=== PATIENT | female | born 1985 | race Caucasian/White ===

== ENCOUNTER 2018-04-20 21:08 | Emergency (ER) | payer MEDICAID, SELFPAY ==
[2018-04-20 21:10] VITALS: BP 124/77; PULSE 85; RESP 16; TEMP 36.9; O2SAT 98; BMI 26.6
[2018-04-20 21:28] LABS: Bacteria 0 SEEN /hpf (None Seen); Color, Urine Straw (Yellow); Glucose, Dipstick Normal (Normal); Ketone-Dipstick Negative (Negative); Leukocyte Esterase-Dipstick Negative /ul (Negative); Mucous, Urine 0 SEEN /hpf (<or=2+); Nitrite-Dipstick Negative (Negative); Occult Blood-Urine 25 /ul (Negative); Protein-Dipstick Negative (Negative); Urine Bilirubin Dipstick Negative (Negative); Urine Clarity Clear (Clear); Urine Urobilinogen Normal (Normal); White Blood Cells 0 SEEN /hpf (0-5)
[2018-04-20 21:35] LABS: Red Blood Cells-Urine 0-5 SEEN /hpf (0-5); Squamous Epithelial Cells - UA 0-5 SEEN /hpf (5-10)
--- NOTE | 2018-04-20 22:01 | ED.DCSUM_ITS ---
- ER Visit Summary Date of Service: 04/20/18 Chief Complaint: Left flank discomfort History of Present Illness: The patient is a 32 F past medical history of anxiety and depression. No history of kidney stones. States she has had some mild urinary frequency for the last day or so. Mild nausea. No vomiting. No diarrhea. Her last menstrual period was less than 4 weeks ago. Ab0. Denies any vaginal bleeding or discharge. No fever. Denies any trauma. Physical Examination: Well-appearing young female. Vital signs stable and afebrile. No distress. H EENT exam unremarkable. Neck nontender. Lungs clear to auscultation bilaterally. Heart regular rhythm no murmur. Abdomen soft nontender. She is moving all 4 extremities. They are neurovascularly intact. Neurologically she is awake alert with no focal motor deficits. Back no significant tenderness. No signs of trauma. Test Results: UA was performed is completely normal. No nitrates no white or red cells on the microscopic and no bacteria. Emergency Department Course and Treatment: Repeat exam at 2158 patient is doing well. Treatment Plan: She is comfortable being discharged home. Tylenol and Motrin for pain. If pain worsens she can return to have a CAT scan at this time I think is very unlikely this is secondary to a kidney stone. Disposition: Discharge Impression: Flank pain uncertain etiology This note was generated with [employer] dictation software. It may contain incorrect words, spelling, and punctuation that were not noted in review of the chart prior to signing ED Disposition - Plan for ED Patient: Chief Complaint: Complaint Referrals: Care Physician,No Primary [Primary Care Provider] -
--- NOTE | 2018-04-20 22:01 | ED.DEP ---
ED Disposition - Plan for ED Patient: Disposition: Home or Assisted Living Chief Complaint: Complaint Instructions: ED Flank Pain Uncertain Cause Referrals: Ben Mei MD [STAFF PHYSICIAN] - 3-5 Days if not improving Additional Instructions: Tylenol and Motrin for pain. Follow-up with a primary care physician if not improving.
[2018-04-20 22:11] VITALS: BP 101/69; PULSE 72; RESP 18; O2SAT 98
== END 2018-04-20 22:12 | disposition home or self-care (01) ==
PROVIDERS: Emergency Provider Emergency Medicine
DX: R10.9 Unspecified abdominal pain (principal); R35.0 Frequency of micturition; R39.15 Urgency of urination; R11.0 Nausea; F32.9 Major depressive disorder, single episode, unspecified; F41.9 Anxiety disorder, unspecified; Z72.0 Tobacco use; Z79.899 Other long term (current) drug therapy
CPT/HCPCS: 81001; 99282

== ENCOUNTER 2018-05-08 21:51 | Emergency (ER) | payer MEDICAID, SELFPAY ==
[2018-05-08 21:52] VITALS: BP 147/76; PULSE 88; RESP 14; TEMP 36.8; O2SAT 97; BMI 23.5
--- NOTE | 2018-05-08 22:16 | ED.VISSUMM ---
- ER Visit Summary Date of Service: 05/08/18 Chief Complaint: Dental pain History of Present Illness: The patient is a 32 F who states that yesterday she removed her partials and when she did so tooth on the lower left side broke apart. She notes sensitivity to cold and heat. She has an appointment May 15 in [facility] for dentistry. She states that she is tried some Orajel ibuprofen and Tylenol can seemed to help with the pain. She denies any significant medical problems. Physical Examination: Afebrile vital signs are stable Gen: Well-nourished well-developed Head: Normocephalic atraumatic Eyes: Perrl EOMI ENT: TMs clear no rhinorrhea moist mucous membranes left lower premolar appears to have a large piece of the enamel missing with yellow exposed part of the tooth/Dentin visible on the outside. Neck: Supple no lymphadenopathy no JVD nontender CVS: Regular rate rhythm no murmurs normal S1-S2 Respiratory: No distress clear to auscultation bilaterally chest nontender Abdomen: Soft nontender nondistended normal bowel sounds no masses Back: Nontender Extremity: Nontender no edema Skin: Normal color no rash Neuro: alert orientated ?3 CN II-XII intact normal strength sensation reflexes gait cerebellar Psych: Normal affect normal mood Emergency Department Course and Treatment: It was applied. Patient will be started on clindamycin due to penicillin allergy and a few [place]. I advised her to follow-up with dentistry as soon as possible Impression: 1. Eliseo 2 fracture secondary to dental caries This note was generated with [employer] dictation software. It may contain incorrect words, spelling, and punctuation that were not noted in review of the chart prior to signing ED Disposition - Plan for ED Patient: Disposition: Home or Assisted Living Chief Complaint: Dental Instructions: ED Fx Tooth Prescriptions: Hydrocodone Bitart/Apap 5-325 [[place] 5MG-325MG] 1 tab PO Q6H PRN PRN 3 Days #12 tab PRN Reason: Pain Clindamycin [Cleocin] 300 mg PO 4X/DAY #80 cap Additional Instructions: See your dentist as soon as possible
--- NOTE | 2018-05-08 22:20 | ED.DCSUM_ITS ---
- ER Visit Summary Date of Service: 05/08/18 Chief Complaint: Dental pain History of Present Illness: The patient is a 32 F who states that yesterday she removed her partials and when she did so tooth on the lower left side broke apart. She notes sensitivity to cold and heat. She has an appointment May 15 in [facility] for dentistry. She states that she is tried some Orajel ibuprofen and Tylenol can seemed to help with the pain. She denies any significant medical problems. Physical Examination: Afebrile vital signs are stable Gen: Well-nourished well-developed Head: Normocephalic atraumatic Eyes: Perrl EOMI ENT: TMs clear no rhinorrhea moist mucous membranes left lower premolar appears to have a large piece of the enamel missing with yellow exposed part of the tooth/Dentin visible on the outside. Neck: Supple no lymphadenopathy no JVD nontender CVS: Regular rate rhythm no murmurs normal S1-S2 Respiratory: No distress clear to auscultation bilaterally chest nontender Abdomen: Soft nontender nondistended normal bowel sounds no masses Back: Nontender Extremity: Nontender no edema Skin: Normal color no rash Neuro: alert orientated ?3 CN II-XII intact normal strength sensation reflexes gait cerebellar Psych: Normal affect normal mood Emergency Department Course and Treatment: It was applied. Patient will be started on clindamycin due to penicillin allergy and a few [place]. I advised her to follow-up with dentistry as soon as possible Impression: 1. Eliseo 2 fracture secondary to dental caries This note was generated with [employer] dictation software. It may contain incorrect words, spelling, and punctuation that were not noted in review of the chart prior to signing ED Disposition - Plan for ED Patient: Disposition: Home or Assisted Living Chief Complaint: Dental Instructions: ED Fx Tooth Prescriptions: Hydrocodone Bitart/Apap 5-325 [[place] 5MG-325MG] 1 tab PO Q6H PRN PRN 3 Days #12 tab PRN Reason: Pain Clindamycin [Cleocin] 300 mg PO 4X/DAY #80 cap Additional Instructions: See your dentist as soon as possible
[2018-05-08] MEDS: HYDROcodone Bitartrate/Apap 5/325 Tablet PO (22:26)
[2018-05-08] MEDS: Clindamycin HCl 150 MG Capsule 300 MG PO (22:27)
[2018-05-08 22:40] VITALS: BP 134/68; PULSE 80; RESP 18; O2SAT 99
== END 2018-05-08 22:41 | disposition home or self-care (01) ==
LOC: ED 22:25
PROVIDERS: Emergency Provider Emergency Medicine
DX: K02.9 Dental caries, unspecified (principal); S02.5XXA Fracture of tooth (traumatic), initial encounter for closed fracture; X58.XXXA Exposure to other specified factors, initial encounter; Y93.9 Activity, unspecified; Y92.9 Unspecified place or not applicable; Y99.9 Unspecified external cause status; F41.9 Anxiety disorder, unspecified; G47.00 Insomnia, unspecified; Z72.0 Tobacco use; Z79.899 Other long term (current) drug therapy; Z88.0 Allergy status to penicillin
CPT/HCPCS: 99283

== ENCOUNTER 2018-10-27 20:09 | Emergency (ER) | payer MEDICAID, SELFPAY ==
[2018-10-27 20:12] VITALS: BP 143/73; PULSE 99; RESP 18; TEMP 36.7; O2SAT 99; BMI 25.0
--- NOTE | 2018-10-27 20:24 | RAD_ITS ---
STUDY: X-RAY CHEST REASON FOR EXAM: Female, 33 years old. Upper respiratory infection. TECHNIQUE: Single AP portable view of the chest. COMPARISON: None. FINDINGS: Cardiac silhouette unremarkable. Pulmonary vascularity unremarkable. Aorta unremarkable. No focal patchy airspace opacities. No pleural effusions. Upper abdomen unremarkable. Osseous structures intact. No pneumothorax. RAD/Chest 1 View IMPRESSION: No acute cardiopulmonary findings Electronically Signed: Parish Tineo DO at 20:45 EDT Tel , Service support ,
--- NOTE | 2018-10-27 20:25 | ED.VISSUMM ---
- ER Visit Summary Date of Service: 10/27/18 Chief Complaint: Cough History of Present Illness: The patient is a 33 F presenting with cough, runny nose. She states this started 4 days ago. She complains of sore throat, bilateral ear pain, productive cough. She denies fever. Denies difficulty swallowing. She has been taking Mucinex at home. Physical Examination: Vitals are stable. Patient is afebrile. Alert no acute distress. HEENT exam mild pharyngeal erythema with no exudate. Uvula midline. TMs normal bilaterally. Neck is supple. No meningismus Lungs are clear and equal bilaterally. Heart is regular rate and rhythm. Abdomen is soft nontender nondistended. Extremities are unremarkable. Skin is warm and dry. No rash No focal neurologic deficit. Remainder of exam is unremarkable. Emergency Department Course and Treatment: Chest x-ray shows no acute process. Rapid strep is negative. Patient is given a prescription for Tessalon Perles. Advised to follow-up with Dr. Aragon credit administration manager for no doc. Advised return to ED for worsening complaints. Disposition: Discharge home Impression: URI This note was generated with [employer] dictation software. It may contain incorrect words, spelling, and punctuation that were not noted in review of the chart prior to signing ED Disposition - Plan for ED Patient: Instructions: ED Upper Resp Infec No Abx Tx Prescriptions: Benzonatate [Tessalon Perle] 200 mg PO TID PRN PRN #20 capsule PRN Reason: Cough Referrals: Nestor Aragon MD [STAFF PHYSICIAN] -
--- NOTE | 2018-10-27 21:03 | ED.DEP ---
ED Disposition - Plan for ED Patient: Instructions: ED Upper Resp Infec No Abx Tx Prescriptions: Benzonatate [Tessalon Perle] 200 mg PO TID PRN PRN #20 capsule PRN Reason: Cough Referrals: Nestor Aragon MD [STAFF PHYSICIAN] -
[2018-10-27 21:26] VITALS: PULSE 91; RESP 18; O2SAT 98
== END 2018-10-27 21:39 | disposition home or self-care (01) ==
PROVIDERS: Emergency Provider Emergency Medicine
DX: J06.9 Acute upper respiratory infection, unspecified (principal); H92.03 Otalgia, bilateral; Z72.0 Tobacco use; Z79.899 Other long term (current) drug therapy
CPT/HCPCS: 71045; 87880; 99283

== ENCOUNTER 2019-04-20 18:17 | Emergency (ER) | payer MEDICAID, SELFPAY ==
[2019-04-20 18:18] VITALS: BP 133/84; PULSE 108; RESP 16; TEMP 35.9; BMI 30.9
--- NOTE | 2019-04-20 18:26 | RAD_ITS ---
STUDY: X-RAY CHEST REASON FOR EXAM: Female, 33 years old. Fever and cough TECHNIQUE: PA and lateral views of the chest. COMPARISON: 10/27/2018 FINDINGS: The lungs are clear and expanded. There is no demonstrated pleural abnormality. Normal size heart. Normal mediastinum and violet. Normal visualized pulmonary arteries. Normal visualized aortic arch and descending thoracic aorta. Normal visualized thoracic spine. Normal visualized ribs, clavicles, and shoulders. There is no demonstrated abnormality of the visualized soft tissue structures of the upper abdomen. RAD/Chest PA and Lateral IMPRESSION: Normal x-ray examination of the chest. Electronically Signed: Dean Morgan MD at 18:42 EDT , Service support ,
--- NOTE | 2019-04-20 18:39 | ED.VISSUMM ---
- ER Visit Summary Date of Service: 04/20/19 Chief Complaint: URI History of Present Illness: The patient is a 33 F presenting with URI symptoms. Patient states this has been ongoing since April 09. She was seen at urgent care. She was told she likely had a viral illness. She has been taking DayQuil and NyQuil at home. She complains of rhinorrhea, sore throat, cough. Denies chest pain or shortness of breath. Denies fever. Denies other complaints. Physical Examination: Vitals are stable. Patient is afebrile. Alert no acute distress. HEENT exam is unremarkable. Pharynx is normal. Uvula is midline. Neck is supple. No meningismus Lungs are clear and equal bilaterally. Heart is regular rate and rhythm. Abdomen is soft nontender nondistended. No guarding or rebound Extremities are unremarkable. Skin is warm and dry. No rash No focal neurologic deficit. Remainder of exam is unremarkable. Emergency Department Course and Treatment: Chest x-ray shows normal x-ray examination of the chest. She is given perception for Fabiana Simon. Advised to follow-up with Dr. Mckenna on-call for no doctor. Advised return to ED for worsening complaints. Disposition: Discharge home Impression: URI This note was generated with [employer] dictation software. It may contain incorrect words, spelling, and punctuation that were not noted in review of the chart prior to signing ED Disposition - Plan for ED Patient: Instructions: VIRAL SYNDROME (Adult) Prescriptions: Benzonatate [Tessalon Perle] 200 mg PO TID PRN PRN #20 cap PRN Reason: Cough Prescription Printed Referrals: Don Mckenna DO [NON CLINICAL AFFILIATE] -
--- NOTE | 2019-04-20 19:03 | ED.DEP ---
ED Disposition - Plan for ED Patient: Instructions: VIRAL SYNDROME (Adult) Prescriptions: Benzonatate [Tessalon Perle] 200 mg PO TID PRN PRN #20 capsule PRN Reason: Cough Referrals: Don Mckenna DO [NON CLINICAL AFFILIATE] -
[2019-04-20 19:06] VITALS: BP 128/67; PULSE 98; RESP 18; O2SAT 97
== END 2019-04-20 19:39 | disposition home or self-care (01) ==
LOC: ED 18:42
PROVIDERS: Emergency Provider Emergency Medicine
DX: J06.9 Acute upper respiratory infection, unspecified (principal); F41.9 Anxiety disorder, unspecified; Z72.0 Tobacco use
CPT/HCPCS: 71046; 99282

== ENCOUNTER 2019-12-19 22:55 | Emergency (ER) | payer MEDICAID, SELFPAY ==
[2019-12-19 22:56] VITALS: BP 139/101; PULSE 97; RESP 18; TEMP 36.8; O2SAT 95; BMI 28.1
--- NOTE | 2019-12-19 23:26 | ED.DCSUM_ITS ---
History of Present Illness Chief Complaint: Female C/O Informant: Patient Narrative: Stated she has had yellow vaginal discharge for the last couple weeks. She denies any pain. No history of sexual transmitted infection except for herpes. She is not having a flareup of this. She stated has mild foul smell. She is never had gonorrhea chlamydia bacterial vaginosis or trichomonas. No home treatment. Not having pain. Denies . Severity is mild. Past Medical History - Allergies and Home Meds Allergies/Adverse Reactions: Allergies acetaminophen [From Darvocet-N] Allergy (Verified 12/19/19 22:58) Hives Penicillins Allergy (Verified 12/19/19 22:58) Hives propoxyphene napsylate [From Darvocet-N] Allergy (Verified 12/19/19 22:58) Hives amoxicillin Adverse Reaction (Verified 12/19/19 22:58) Hives Primary Care Physician: Care Physician,No Primary [Primary Care Provider] - Prior records reviewed: Yes Past Medical History: None Surgical History: noncontributory Lives: With Family Smoking Status: Current every day smoker Alcohol: None Drugs: None Review of Systems General: Denies: Chills, Fever, Sweats Eyes: Denies: Visual changes - bilaterally, Diplopia ENT: Denies: Rhinorrhea, Sore throat Cardiovascular: Denies: Chest pain, Palpitations Respiratory: Denies: Dyspnea, Cough, Dyspnea on exertion Gastrointestinal: Denies: Abdominal pain, Nausea, Vomiting, Diarrhea, Melena, Hematochezia Genitourinary: Denies: Dysuria, Hematuria, Frequency Musculoskeletal: Denies: Back pain, Extremity Pain Skin: Denies: Rash, Wounds Neurological: Denies: Headache, Weakness, Numbness Physical Exam Vital Signs/Narrative: Vital Signs Temp Pulse Resp BP Pulse Ox 12/19/19 22:56 98.3 F 97 18 139/101 H 95 General: Well nourished, Well developed, No Acute Distress Head: Normocephalic, Atraumatic Eyes: Perrl, EOMI ENT: Moist mucous membranes, No rhinorrhea Neck: Supple, Nontender Cardiovascular: Regular rate, Regular rhythm, No murmurs Respiratory: No distress, CTA bilaterally, Chest nontender Abdomen: Soft, Nontender, Nondistended, Normal bowel sounds Back: Nontender, Normal Inspection Extremities: Nontender, No edema Skin: Normal color, No rash Neurological: Alert, Oriented x3, Cranial nerves II-XII grossly intact, Normal Strength, Normal Sensation Psychological: Normal affect, Normal Mood Diagnostic/Tx/Re-eval - Medical Decision Making Refusing pelvic exam. Will send gonorrhea and Chlamydia testing via urine. We will treat her for gonorrhea and chlamydia with ceftriaxone intramuscular and oral azithromycin. We will treat her for bacterial vaginosis and trichomonas with Flagyl as well. She will follow-up as an outpatient. ED Disposition - Plan for ED Patient: Disposition: Home or Assisted Living Diagnosis: Vaginal discharge Instructions: Vaginal Infection: Bacterial Vaginosis Prescriptions: metroNIDAZOLE [Flagyl] 500 mg PO BID #14 tab Transmission Status: Pending to [id number] Referrals: Don Mckenna DO [NON CLINICAL AFFILIATE] -
[2019-12-19] MEDS: metroNIDAZOLE 500 MG Tablet PO (23:40)
[2019-12-19] MEDS: Azithromycin 250 MG Tablet 1000 MG PO (23:40)
[2019-12-19] MEDS: Ceftriaxone 500 MG Vial 250 MG IM (23:53)
[2019-12-20 00:10] VITALS: BP 132/64; PULSE 84; RESP 18; O2SAT 96
[2019-12-20 01:45] LABS: Chlamydia Trachomatis by PCR Negative (Negative); Neisserai gonorrhoeae by PCR Negative (Negative); Probe Check PASS; Sample Adequacy Control PASS; Specimen Processing Control PASS
--- OUTSIDE RECORDS SUMMARY | 2020-04-26 12:12 | XMS RPT_ITS | CCD ---
:1985 External Reference #:[id number] Demographics Address [address] [place] [address] Preferred Language Unknown Marital Status Unknown Orthodoxy Affiliation Unknown Race White Ethnic Group Unknown Author Organization [facility] Care Team Providers Name Role Phone Unavailable Unavailable Unavailable Results Result Name Value Range Unit Interpretation Flag Date Location progress on 2019-11 PROGRESS HNO ID: [id number] Normal 11-20-2019 [facility] Author: Prem (Cylinder Inspector) Marie Diaz ([id number]) Service: ? Author Type: Nurse Practitioner Type: Progress Notes Filed: 11/20/2019 3:53 PM Note Text: Subjective HPI Nontoxic-appearing female presents urgent care with chief co mplaint possible dental infection. Duration of symptoms 3 days. Asso ciated symptoms left lower dental pain and gum redness. Patient sta selma history of dental infections in the past. Patient states use of leav e for symptom management with adequate success. Current pain 6 out of 10. Patient denies any trauma. Patient denies any fevers, trismus, diffi culty swallowing, cough, pleuritic pain, chest pain, shortness of breath, abdominal pain or change in bowel or bladder habit. Patient denies chance . She states use of clindamycin for dental infectio ns in past with good success. BP 120/84 Pulse 84 Temp 36.2 ?C (97.1 ?F) (Left Tympanic ) Resp 16 Wt 81.6 kg (180 lb) LMP 06/29/2019 BMI 28.62 kg/m? .Patient presents with: Mouth/Lip Problem: gum swollen on LEFT side/bottom of mouth x 3 days increasing in pain/swelling PAST MEDICAL HISTORY Diagnosis Date - Anxiety disorder in conditions classified elsewhere - Plantar fascial fibromatosis PAST SURGICAL HISTORY Procedure Laterality Date - NONE ALLERGIES Amoxil [Amoxicillin]; Darvocet A500 [Propoxyphene N-Acetaminophen]; Naproxen; Penicillins MEDICATIONS etonogestrel (NEXPLANON) subdermal implant 68 mg 1 Each by S UBDERMAL route as directed. ZOLPIDEM TARTRATE (AMBIEN ORAL) Take by mouth. ALPRAZolam (XANAX) 0.5 mg ORAL tablet Take one(1) tablet fou r (4) times daily. FAMILY HISTORY Problem Relation Age of Onset - Diabetes Mother - Emphysema Mother - Alcohol/Drug Mother - Hypertension Mother - other (UNKNOWN) Father - Stroke Maternal Grandmother - Hypertension Maternal Grandmother - Psychiatry Maternal Grandfather SCHIZOPHRENIA - Psychiatry Maternal Aunt BIPOLAR - Hypertension Maternal Aunt Social History Tobacco Use - Smoking status: Current Every Day Smoker Packs/day: 1.00 Years: 7.00 Pack years: 7.00 Types: Cigarettes - Smokeless tobacco: Never Used Substance Use Topics - Alcohol use: No - Drug use: No Review of Systems Constitutional: Negative for chills, fever and malaise/fatig ue. HENT: Negative for congestion, ear discharge, ear pain, sinu s pain and sore throat. Eyes: Negative for blurred vision and double vision. Respiratory: Negative for cough, sputum production, shortnes s of breath and wheezing. Cardiovascular: Negative for chest pain. Gastrointestinal: Negative for abdominal pain, nausea and vo miting. Musculoskeletal: Negative for myalgias. Skin: Negative for itching and rash. Neurological: Negative for dizziness and headaches. Objective Physical Exam Constitutional: She is oriented to person, place, and time a nd well-developed, well-nourished, and in no distress. No distr ess. HENT: Head: Normocephalic and atraumatic. Right Ear: Hearing, external ear and ear canal normal. No dr ainage, swelling or tenderness. No decreased hearing is noted. Left Ear: Hearing, tympanic membrane, external ear and ear c anal normal. No drainage, swelling or tenderness. No decreased hearing is noted. Mouth/Throat: Uvula is midline. No trismus in the jaw. Abnor mal dentition. Dental caries present. No dental abscesses or uvula swelling . No oropharyngeal exudate, posterior oropharyngeal edema, laundromat worker ior oropharyngeal erythema or tonsillar abscesses. Erythematous lower left gum. Pain with palpation around toot h 17 to gum area. Eyes: Pupils are equal, round, and reactive to light. Conjun ctivae are normal. Right eye exhibits no discharge. Left eye exhibits n o discharge. Neck: Normal range of motion. Neck supple. Cardiovascular: Normal rate, regular rhythm and normal heart sounds. Pulmonary/Chest: Effort normal and breath sounds normal. No accessory muscle usage. No respiratory distress. She has no wheezes. S he has no rales. She exhibits no tenderness. Abdominal: Soft. There is no abdominal tenderness. Musculoskeletal: Normal range of motion. General: No tenderness. Lymphadenopathy: Head (right side): No submental, no submandibular, no tonsil lar, no preauricular, no posterior auricular and no occipital adenop athy present. Head (left side): No submental, no submandibular, no tonsill ar, no preauricular, no posterior auricular and no occipital adenop athy present. She has no cervical adenopathy. Right cervical: No superficial cervical and no posterior cer vical adenopathy present. Left cervical: No superficial cervical and no posterior cerv ical adenopathy present. Neurological: She is alert and oriented to person, place, an d time. Skin: Skin is warm and dry. No rash noted. She is not diapho retic. Nursing note and vitals reviewed. ASSESSMENT/PLAN: 1. Dental infection - ICD9: 522.4, ICD10: K04.7 Patient was placed on clindamycin. Previous use of this medi cation without adverse effects. Probiotic was prescribed. Diflucan was prescribed if needed. Patient will follow up with dentist in 2-3 days for reevaluation Patient was educated on supportive therapies. Patient will f ollow up with primary care provider as needed. Patient was instructed to i mmediately proceed to emergency room for any new, worsening, or symptom s lasting longer than anticipated. The patient's clinical presentation is otherwise unremarkable at this time. Based on exam and clinical findin g, the patient is stable for discharge. Plan of care was discussed with jd rg. Patient verbalizes understanding and agrees to plan of care. This no te was generated using [employer] software. It may contain errors in wo rding, punctuation, or spelling. Prem Salazar APRN.ANTOINE tate on 2019-11-20 CNOV Office Visit ([facility]) Normal 11-19- 20 [facility] MCMILLANCORWIN ([id number]) 1985 [facility] Date Time Provider Department ([id number]) 11/20/19 3:15 PM PREM SALAZAR ([facility] During your visit today, we recorded the following informati on about you: Temperature Pulse Respiration Blood pressure 97.1 degrees 84/minute 16/minute 120/84 Weight 81.6 kg Prem Salazar APRN.ELECTRONICS RESEARCH ENGINEER 11/20/2019 3:53 PM Signed Subjective HPI Nontoxic-appearing female presents urgent care with ch ief complaint possible dental infection. Duration of symptoms 3 days. A ssociated symptoms left lower dental pain and gum redness. Patient states history of den david infections in the past. Patient states use of leave for symptom management with adequate success. Current pain 6 out of 10. Patient denies any trauma. Patient denies any fevers, trismus, difficulty swallowi ng, cough, pleuritic pain, chest pain, shortness of breath, abdominal pain or change in bowel or bl adder habit. Patient denies chance . She states use of clindamyc in for dental infections in past with good success. BP 120/84 Pulse 84 Temp 36.2 ?C (97.1 ?F) (Left Tympanic ) Resp 16 Wt 81.6 kg (180 lb) LMP 06/29/2019 BMI 28.62 kg/m? .Patient presents with: Mouth/Lip Problem: gum swoll en on LEFT side/bottom of mouth x 3 days increasing in pain/swelling PAST MEDICAL HISTORY Diagnosis Date - Anxiety disorder in conditions classified elsewhere - Plantar fascial fibromatosis PAST SURGICAL HISTORY Procedure Laterality Date - NONE ALLERGIES Amoxil [Amoxicillin]; Darvocet A500 [P ropoxyphene N-Acetaminophen]; Naproxen; Penicillins MEDICATIONS etonogestrel (NEXPLANON) subdermal implant 68 mg 1 Each by SUBDERMAL route as directed. ZOLPIDEM TARTRATE (AMBIEN ORAL) Take by mouth. ALPRAZolam (XANAX) 0.5 mg ORAL tablet Ta radha one(1) tablet four (4) times daily. FAMILY HISTORY Problem Relation Age of Onset - Diabetes Mother - Emphysema Mother - Alcohol/Drug Mother - Hypertension Mother - other (UNKNOWN) Father - Stroke Maternal Grandmother - Hypertension Maternal Grandmother - Psychiatry Maternal Grandfather SCHIZOPHRENIA - Psychiatry Maternal Aunt BIPOLAR - Hypertension Maternal Aunt Social History Tobacco Use - Smoking status: Current Every Day Smoker Packs/day: 1.00 Years: 7.00 Pack years: 7.00 Types: Cigarettes - Smokeless tobacco: Never Used Substance Use Topics - Alcohol use: No - Drug use: No Review of Systems Constitutional: Negative for chills, fever and malaise/fatig ue. HENT: Negative for congestion, ear discharge, ear pain, si nus pain and sore throat. Eyes: Negative for blurred vision and double vision. Respiratory: Negative for cough, sputum production, shortn ess of breath and wheezing. Cardiovascular: Negative for chest pain. Gastrointestinal: Negative for abdominal pain, nausea and vo miting. Musculoskeletal: Negative for myalgias. Skin: Negative for itching and rash. Neurological: Negative for dizziness and headaches. Objective Physical Exam Constitutional: She is oriented to perso n, place, and time and well-developed, well-nourished, and in no distress. No distress. HENT: Head: Normocephalic and atraumatic. Right Ear: Hearing, external ear and ear canal normal. No drainage, swelling or tenderness. No decreased hearing is noted. Left Ear: Hearing, tympanic membrane, external ear and ear canal normal. No drainage, swelling or tenderness. No decreased hearing is no vanessa. Mouth/Throat: Uvula is midline. No trismus in the jaw. Abnor mal dentition. Dental caries present. No dental abscess es or uvula swelling. No oropharyngeal exudate, posterior oropharyngeal edema, posterior orophary ngeal erythema or tonsillar abscesses. Erythematous lower left gum. Pain with palpation around tooth 17 to gum area. Eyes: Pupils are equal, round, and react diann to light. Conjunctivae are normal. Right eye exhibits no discharge. Left eye exhibits no discha rge. Neck: Normal range of motion. Neck supple. Cardiovascular: Normal rate, regular rhythm and normal heart sounds. Pulmonary/Chest: Effort normal and breath sounds nina l. No accessory muscle usage. No respiratory distress. She has no wheezes. She has no rales. She exhibits no tenderness. Abdominal: Soft. There is no abdominal tenderness. Musculoskeletal: Normal range of motion. General: No tenderness. Lymphadenopathy: Head (right side): No submental, no submandibular, no tonsil lar, no preauricular, no posterior auricular and no occipital adenop athy present. Head (left side): No submental, no submandibular, no tonsill ar, no preauricular, no posterior auricular and no occipital adenop athy present. She has no cervical adenopathy. Right cervical: No superficial cervical and no posterior cer vical adenopathy present. Left cervical: No superficial cervical and no posterior cerv ical adenopathy present. Neurological: She is alert and oriented to person, place, an d time. Skin: Skin is warm and dry. No rash noted. She is not diapho retic. Nursing note and vitals reviewed. ASSESSMENT/PLAN: 1. Dental infection - ICD9: 522.4, ICD10: K04.7 Patient was placed on clindamycin. Previous use of this medi cation without adverse effects. Probiotic was prescribed. Diflu can was prescribed if needed. Patient will follow up with dentist in 2-3 days for reevalua tion Patient was educated on supportive therapies. Patient will f ollow up with primary care provider as needed. Patient was instructed to immediately proceed to emergency room for any new, worsening, or symptoms lastin g longer than anticipated. The patient's clinical presentation is otherwise unremarkable at this time. Based on exam and clinical finding, the patient i s stable for discharge. Plan of care was discussed with patient. Patient verbalizes understanding and agrees to plan of care . This note was generated using [employer] software. It may contain errors in wording, punctuation, or spelling. Prem Salazar APRN.ELECTRONICS RESEARCH ENGINEER Referring Provider: SELF [[id number]] Allergies As of Date: 11/20/2019 Noted Allergy Reaction AMOXIL (AMOXICILLIN) 05/02/2005 4 - Hives DARVOCET A500 (PROPOXYPHENE N-JJ*11/18/2005 4 - Hives NAPROXEN 11/25/2005 2 - Rash 9 - Itching PENICILLINS 11/18/2005 4 - Hives Date Reviewed: 11/20/2019 Reviewed by: Juana Pittman Ma - Fully Assessed Reason for Visit: Mouth/Lip Problem [68] Cmt: gum swollen on LEFT side/bottom of mouth x 3 days increasing in pain/swelling Primary Visit Diagnosis:Dental infection [K04.7] Order(s):Lactobacillus acidophilus (CHENTE DAWSONEN) 460 mg (20 billion cell) capTake 460 mg by mouth once daily.Disp: 30 capsuleRfl: 0 clindamycin (CLEOCIN) 300 mg capsuleTake 1 capsule by mouth three times daily for 5 days.Disp: 15 capsuleRfl: 0 fluconazole (DIFLUCAN) 150 mg tabletTake 1 tablet by mouth o nce daily for 1 day.Disp: 1 tabletRfl: 0 Prescriptions as of 11/20/2019 Sig: ETONOGESTREL 68 MG SUBDERMAL * 1 Each by SUBDERMAL route as * ZOLPIDEM 10 MG TABLET Take 1 tablet by mouth at bed* ALPRAZOLAM 0.5 MG TABLET Take by mouth three times derrick* FLORAJEN 460 MG (20 BILLION C* Take 460 mg by mouth once derrick * CLINDAMYCIN HCL 300 MG CAPSULE Take 1 capsule by mouth three * FLUCONAZOLE 150 MG TABLET Take 1 tablet by mouth once d* Medication notes this encounter ZOLPIDEM 10 MG TABLET >> Juana Haumesser Ma 11/20/2019 3:30 PM >> HAUMESSER MA JUANA Wed November 20, 2019 3:30 PM Prescribed by counseling center provider ALPRAZOLAM 0.5 MG TABLET >> Juana Haumesser Ma 11/20/2019 3:30 PM >> HAUMESSER MA, JUANA Wed November 20, 2019 3:30 PM PRN prescribed by Counseling Center provider Problem List As Of Date 11/20/2019 Noted Resolved PLANTAR Fasciitis [M72.2] 11/25/2005 ENTHESOPATHY, SITE NOS [M77.9] 11/25/2005 ALLERGIC RHINITIS NOS [J30.9] 12/14/2005 Prescriptions ordered this encounter Disp Refills Start End FLORAJEN 460 MG (20 BILLION CELL) CA* 30 c* 0 11/20/2019 Route: ORAL Sig: Take 460 mg by mouth once daily. CLINDAMYCIN HCL 300 MG CAPSULE 15 c* 0 11/20/2019 11/25/2019 Route: ORAL Sig: Take 1 capsule by mouth three times daily for 5 days. FLUCONAZOLE 150 MG TABLET 1 ta* 0 11/20/2019 11/21/2019 Route: ORAL Sig: Take 1 tablet by mouth once daily for 1 day. Encounter Status:Closed by MARIE MCCARTHY.ANTOINECARLYLEPREM on progress on 2019-07 PROGRESS HNO ID: [id number] Normal 07-25-2019 [facility] Author: Briana Yo Diaz ([id number]) Service: ? Author Type: Nurse Practitioner Type: Progress Notes Filed: 07/25/2019 2:01 PM Note Text: Corwin Mcmillan is a 33 year old female who presents for Nexp lanon removal for scheduled 3 year removal. UNIVERSAL PROTOCOL / SAFETY CHECKLIST Procedure to be performed: Nexplanon removal Sign in Communication: Completed Time Out: Team Confirms the Correct Patient, Correct Procedu re, Correct Site and Site Marking, Correct Position (if applicable), Pre p and Dry Time (if applicable). Time: 1315 Affirmation of Time Out: YES Sign Out Discussion: Completed Briana Yo APRN.CNP TECHNIQUE: Patient placed in supine position with left arm bent at the elbow and placed over the head. Skin cleansed with betadine. 2.5mL of 1% lidocaine with epi injected subQ along insertion site. Scalpel used to made a 5mm stab incisi on superficially at distal end of Nexplanon. Device removed und er sterile technique with a small hemostat. Sterile pressure dressing a pplied. AANDP: 33 year old female here for implanon removal Nexplanon removed intact without difficulty. The patient was instructed to remove the dressing after 24 h ours. Contraceptive plans replace nexplanon Briana Yo APRN.ANTOINE Rai Mcmillan is a 33 year old female who presents for Nexplanon insertion. Patient's last menstrual period was 06/29/2019. VITALS: BP 122/64 Ht 5' 6.5 (1.69m) Wt 191 lb 9.6 oz (8 6.9kg) LMP 06/29/2019 BMI 30.47 kg/(m2). test: n/a Nexplanon lot #: [id number] Exp date: 12/24/21 UNIVERSAL PROTOCOL / SAFETY CHECKLIST Procedure to be performed: Nexplanon insertion Sign in Communication: Completed Time Out: Team Confirms the Correct Patient, Correct Procedu re, Correct Site and Site Marking, Correct Position (if applicable), Pre p and Dry Time (if applicable). Time: 5 Affirmation of Time Out: YES Sign Out Discussion: Completed Briana Yo APRN.CNP TECHNIQUE: Patient placed in supine position with left) bent at the elb ow and placed over the head. Skin cleansed with betadine. 2.5mL of 1% lido rey with 1:100,000 epi injected subQ along insertion site. Nexplanon sergo inserted under sterile technique. The sergo was palpable under the skin after insertion and the notch visible on the trochar after inserti on. Steristrips and sterile pressure dressing applied. AANDP: Nexplanon inserted without complications. Patient user card was filled out and given to the patient. The patient was instructed to remove the dressing after 24 h ours. Advised to use backup contraception for 7 days. Briana Yo APRN.CNP cnov on 2019-07-25 CNOV Office Visit ([facility]) Normal 07-25-2019 [facility] CORWIN MCMILLAN ([id number]) 1985 [facility] Date Time Provider Department ([id number]) 07/25/19 1:00 PM BRIANA YO (ANTOINE) [facility] During your visit today, we recorded the following informati on about you: Blood pressure Weight Height Last Period 122/64 86.9 kg 1.689 m 06/29/19 Briana Yo APRN.CNP 07/25/2019 2:01 PM Signed Corwin Mcmillan is a 33 year old female who prese [facility] for Nexplanon removal for scheduled 3 year removal. UNIVERSAL PROTOCOL / SAFETY CHECKLIST Procedure to be performed: Nexplanon removal Sign in Communication: Completed Time Out: Team Confirms the Correct Patient, Correct P rocedure, Correct Site and Site Marking, Correct Position (if applicable), Prep and Dry Time (if applicable). Time: 1315 Affirmation of Time Out: YES Sign Out Discussion: Completed Briana Yo APRN.CNP TECHNIQUE: Patient placed in supine position with left arm bent a t the elbow and placed over the head. Skin cleansed with betadine. 2.5mL of 1% lidocaine with epi injected subQ along insertion site. Scalpel used to made a 5mm stab incision sup erficially at distal end of Nexplanon. Device removed under sterile technique with a small hemostat. Sterile pressure dressing applied. AANDP: 33 year old female here for implanon removal Nexplanon removed intact without difficulty. The patient was instructed to remove the dressing after 24 h ours. Contraceptive plans replace nexplanon Briana Yo APRN.CNP Corwin Mcmillan is a 33 year old female who presents fo r Nexplanon insertion. Patient's last menstrual period was 06/29/2019. VITALS: BP 122/64 Ht 5' 6.5 (1.69m) Wt 191 lb 9.6 oz (8 6.9kg) LMP 06/29/2019 BMI 30.47 kg/(m2). test: n/a Nexplanon lot #: [id number] Exp date: 12/24/21 UNIVERSAL PROTOCOL / SAFETY CHECKLIST Procedure to be performed: Nexplanon insertion Sign in Communication: Completed Time Out: Team Confirms the Correct Patient, Correct P rocedure, Correct Site and Site Marking, Correct Position (if applicable), Prep and Dry Time (if applicable). Time: 1315 Affirmation of Time Out: YES Sign Out Discussion: Completed Briana Yo APRN.CNP TECHNIQUE: Patient placed in supine position with l eft) bent at the elbow and placed over the head. Skin cleansed with betadine. 2.5mL of 1% lidocai ne with 1:100,000 epi injected subQ along insertion site. Nexplanon sergo inserted under sterile technique. The sergo was palpable under the skin after i nsertion and the notch visible on the trochar after insertion. Steristrips and ster ile pressure dressing applied. AANDP: Nexplanon inserted without complications. Patient user card was filled out and given to the patient. The patient was instructed to remove the dressing after 24 h ours. Advised to use backup contraception for 7 days. IRINEO Cardenas APRN.CNP 07/25/2019 1:33 PM Signed NEXPLANON PATIENT EDUCATION You may remove dressing in 24 hours. Expect some bruising around insertion site. You may take over the counter pain medication (i.e. Tyleno l, motrin, advil, etc) if you have discomfort. Call your provider with excessive bruising or pain. Continue to use condoms for STD prevention. You should use backup contraception for 7 days to prevent pr egnancy. Referring Provider: SELF [[id number]] Allergies As of Date: 07/25/2019 Noted Allergy Reaction AMOXIL (AMOXICILLIN) 05/02/2005 4 - Hives DARVOCET A500 (PROPOXYPHENE N-JJ*11/18/2005 4 - Hives NAPROXEN 11/25/2005 2 - Rash 9 - Itching PENICILLINS 11/18/2005 4 - Hives Date Reviewed: 07/25/2019 Reviewed by: Briana Bellamy) Srinath - Fully Assessed Reason for Visit: Yearly Exam [187] Primary Visit Diagnosis:Encounter for removal and reinsertio n of Nexplanon [Z30.46] Other Visit Diagnosis:Insertion of implantable subdermal con traceptive [Z30.017] Order(s):NEXPLANON INSERTION [0940620] Order #: [id number] etonogestrel subdermal implant 68 mg (NEXPLANON)Disp: Rfl: etonogestrel (NEXPLANON) subdermal implant 68 mg1 Each by NAIDU BDERMAL route as directed.Disp: 1 EachRfl: 0 etonogestrel subdermal implant 68 mg (NEXPLANON)Disp: Rfl: Prescriptions as of 07/25/2019 Sig: ETONOGESTREL 68 MG SUBDERMAL * 1 Each by SUBDERMAL route as * ACYCLOVIR 400 MG TABLET Take 2 tablets by mouth twice* AMBIEN ORAL Take by mouth. ALPRAZOLAM 0.5 MG TABLET Take one(1) tablet four (4) t* Problem List As Of Date 07/25/2019 Noted Resolved PLANTAR Fasciitis [M72.2] 11/25/2005 ENTHESOPATHY, SITE NOS [M77.9] 11/25/2005 ALLERGIC RHINITIS NOS [J30.9] 12/14/2005 Other instructions from your clinician: NEXPLANON PATIENT EDUCATION You may remove dressing in 24 hours. Expect some bruising around insertion site. You may take over the counter pain medication (i.e. Tylenol, motrin, advil, etc) if you have discomfort. Call your provider with excessive bruising or pain. Continue to use condoms for STD prevention. You should use backup contraception for 7 days to prevent pr egnancy. Prescriptions ordered this encounter Disp Refills Start End ETONOGESTREL 68 MG SUBDERMAL IMPLANT 07/25/2019 08/24/2019 Route: SDRM ETONOGESTREL 68 MG SUBDERMAL IMPLANT 1 Ea* 0 07/25/201907/10 Class: In Office Route: SDRM Si Each by SUBDERMAL route as directed. ETONOGESTREL 68 MG SUBDERMAL IMPLANT 07/25/2019 08/24/2019 Route: SDRM Medications Discontinued During This Encounter albuterol HFA (PROVENTIL HFA, VENTOL* 1 In* 0 05/21/201907/10 Route: INHALATION Sig: Inhale 2 Puffs as instructed every 4 hours as needed. Disc: Reason for discontinue is not on file. benzonatate (TESSALON PERLE) 100 mg * 42 c* 0 04/10/201907/25 Route: ORAL Sig: Take 2 capsules by mouth three times daily as needed. Patient not taking: Reported on 05/21/2019 Disc: Reason for discontinue is not on file. benzonatate (TESSALON PERLES) 100 mg* 40 c* 0 05/21/201907/10 Route: ORAL Sig: Take 1 capsule by mouth three times daily as needed. Disc: Reason for discontinue is not on file. guaiFENesin (MUCINEX) 600 mg 12 hr t* 30 t* 0 05/21/201907/10 Route: ORAL Sig: Take 2 tablets by mouth twice daily. Disc: Reason for discontinue is not on file. Ipratropium (ATROVENT) 17 mcg/actuat* 1 In* 0 05/21/201907/10 Route: INHALATION Sig: Inhale 2 Puffs as instructed every 6 hours. Disc: Reason for discontinue is not on file. etonogestrel(IMPLANON 68 MG SUBDERMA* 0 09/22/2008 07/25/2019 Class: Historical Med Route: SUBDERMAL Sig: use as directed Disc: Reason for discontinue is not on file. etonogestrel subdermal implant 68 mg* 1 Ea* 0 04/03/201307/25 Class: Back Office Route: SUBDERMAL Si Each by SUBDERMAL route one time only for 1 dose. Disc: Reason for discontinue is not on file. Disposition: Return in 1 year (on 07/25/2020) for Annual Exam . Follow-up and Disposition History Recorded Encounter Status:Closed by SRINATHBRIANA ROMAN on 07/25/19 xr chest 2v frontal/lat on 2019-05-21 XR CHEST 2V * * *Final Report* * * Normal 05-21 [facility] FRONTAL/LAT DATE OF EXAM: May 21 2019 2:38PM [facility] [id number] - XR CHEST 2V FRONTAL/LAT / ([id number]) PROCEDURE REASON: Cough * * * * Physician Interpretation * * * * EXAMINATION: CHEST RADIOGRAPH (2 VIEW FRONTAL and LATERAL) CLINICAL HISTORY: Cough MQ: XC2_5 Comparison: None RESULT: There has been a relatively shallow inspiration. The heart is normal in size. There is no frantz pulmonary consolidation, p leural effusion, pneumothorax, or pulmonary vascular redistribution . IMPRESSION: No acute pulmonary process is identified. Pattern Marking Supervisor: PSCB Transcribe Date/Time: May 21 2019 2:43P Dictated by : CONG WILKINS MD This examination was interpreted and the report reviewed and electronically signed by: CONG WILKINS MD on May 21 2019 2:43PM EST [id number] progress on 2019-05 PROGRESS HNO ID: [id number] Normal 05-21-2019 [facility] Author: Yamilex Mcleod Barksdale ([id number]) Service: ? Author Type: Nurse Practitioner Type: Progress Notes Filed: 05/21/2019 4:21 PM Note Text: Subjective HPI Pt presents with c/o nasal congestion, cough myalgias x 4 da ys. Cough is frequent, moist, frequently produces thick clear to yellow, thick mucous. +coughing fits, chest tightness and wheezing. Current everyday smoker. No hx asthma. Denies fever, chills, myalgias, dyspnea. Has not taken any OTC medications. Exposed to sick contacts at work. Did not receive influenza vaccine this season. Review of Systems Constitutional: Negative for chills and fever. HENT: Positive for congestion. Negative for ear pain, sinus pain and sore throat. Respiratory: Positive for cough and wheezing. Negative for h emoptysis, sputum production and shortness of breath. Cardiovascular: Negative for chest pain. Objective Physical Exam Constitutional: She is oriented to person, place, and time a nd well-developed, well-nourished, and in no distress. No distr ess. HENT: Head: Normocephalic. Right Ear: Hearing, tympanic membrane, external ear and ear canal normal. Left Ear: Hearing, tympanic membrane, external ear and ear c anal normal. Nose: Nose normal. Right sinus exhibits no maxillary sinus t enderness and no frontal sinus tenderness. Left sinus exhibits no maxillar y sinus tenderness and no frontal sinus tenderness. Mouth/Throat: Uvula is midline, oropharynx is clear and mois t and mucous membranes are normal. No oropharyngeal exudate. Eyes: Pupils are equal, round, and reactive to light. Conjun ctivae are normal. Right eye exhibits no discharge. Left eye exhibits n o discharge. Neck: Neck supple. Cardiovascular: Normal rate, regular rhythm and normal heart sounds. Exam reveals no gallop and no friction rub. No murmur heard. Pulmonary/Chest: Effort normal. No accessory muscle usage. N o respiratory distress. She has decreased breath sounds (Good air movement throughout. Pulse ox 98%). She has no wheezes. She has no rhonchi. She h as no rales. Lymphadenopathy: She has no cervical adenopathy. Neurological: She is alert and oriented to person, place, an d time. Skin: Skin is warm and dry. She is not diaphoretic. BP 112/70 Pulse 74 Temp 36.2 ?C (97.2 ?F) (Tympanic) R lola 16 Wt 89.4 kg (197 lb) SpO2 97% BMI 31.32 kg/m? .Patient presents with: Sinus Problem: sinus pressure, drainage, headache, cough, ea rs popping, bodyaches x 4 days PAST MEDICAL HISTORY Diagnosis Date - Anxiety disorder in conditions classified elsewhere - Plantar fascial fibromatosis PAST SURGICAL HISTORY Procedure Laterality Date - NONE ALLERGIES Amoxil [Amoxicillin]; Darvocet A500 [Propoxyphene N-Acetaminophen]; Naproxen; Penicillins MEDICATIONS ZOLPIDEM TARTRATE (AMBIEN ORAL) Take by mouth. ALPRAZolam (XANAX) 0.5 mg ORAL tablet Take one(1) tablet fou r (4) times daily. etonogestrel(IMPLANON 68 MG SUBDERMAL IMPLANT) use as direct ed guaiFENesin (MUCINEX) 600 mg 12 hr tablet Take 2 tablets by mouth twice daily. benzonatate (TESSALON PERLES) 100 mg capsule Take 1 capsule by mouth three times daily as needed. albuterol HFA (PROVENTIL HFA, VENTOLIN HFA) 90 mcg/actuation inhaler Inhale 2 Puffs as instructed every 4 hours as needed. Inhalational Spacing Device spcr 1 Device one time only for 1 dose. Ipratropium (ATROVENT) 17 mcg/actuation inhaler Inhale 2 Puf fs as instructed every 6 hours. benzonatate (TESSALON PERLE) 100 mg capsule Take 2 capsules by mouth three times daily as needed. FAMILY HISTORY Problem Relation Age of Onset - Diabetes Mother - Emphysema Mother - Alcohol/Drug Mother - Hypertension Mother - other (UNKNOWN) Father - Stroke Maternal Grandmother - Hypertension Maternal Grandmother - Psychiatry Maternal Grandfather SCHIZOPHRENIA - Psychiatry Maternal Aunt BIPOLAR - Hypertension Maternal Aunt Social History Tobacco Use - Smoking status: Current Every Day Smoker Packs/day: 1.00 Years: 7.00 Pack years: 7.00 Types: Cigarettes - Smokeless tobacco: Never Used Substance Use Topics - Alcohol use: No - Drug use: No ASSESSMENT/PLAN: 1. Bronchitis - ICD9: 490, ICD10: J40 (primary diagnosis) - MUCINEX 600 MG TABLET, EXTENDED RELEASE - BENZONATATE 100 MG CAPSULE - ALBUTEROL SULFATE HFA 90 MCG/ACTUATION AEROSOL INHALER - INHALATIONAL SPACING DEVICE - IPRATROPIUM BROMIDE 17 MCG/ACTUATION HFA AEROSOL INHALER 2. Cough - ICD9: 786.2, ICD10: R05 - XR CHEST 2V FRONTAL/LAT Impression: no acute process. 3. Wheezing - ICD9: 786.07, ICD10: R06.2 - ALBUTEROL SULFATE 2.5 MG/3 ML (0.083 %) SOLUTION FOR NEBUL IZATION 4. Tobacco abuse - ICD9: 305.1, ICD10: Z72.0 - Cessation encouraged. Reviewed and printed bronchitis education and red flag SANDS . The patient is instructed to return or seek emergency treatm ent if symptoms become worse or with any acute change in condition. The patient verbalizes understanding and is in agreement wit h plan of care. Yamilex Mcleod CNP PROGRESS HNO ID: [id number] Normal 05-21-2019 [facility] Author: Bianca Oswald (Rt) Barksdale ([id number]) Service: ? Author Type: Cow Washer Type: Progress Notes Filed: 05/21/2019 2:39 PM Note Text: Radiology Service Progress Note PATIENT NAME: Corwin Mcmillan DATE OF SERVICE: May 21, 2019 TIME: 2:26 PM PATIENT IDENTITY VERIFICATION COMPLETED USING TWO (2) METHOD S: Name and Date of confirmed by patient verbally. PATIENT GENDER DATA: Female. status: : No status: NO. PATIENT RELEVANT IMPLANT DATA REVIEWED: Not Applicable RADIOLOGY DEPARTMENT: General X-ray: Exam(s) Completed: Ches t X-Ray PERIPHERAL IV DATA: Not applicable SIGNED BY: RT Margret May 21, 2019 2:26 PM cnov on 2019-05-21 CNOV Office Visit ([facility]WSTR) Normal 05-21-[address] [place] [address] [facility] CORWIN MCMILLAN ([id number]) 1985 [facility] Date Time Provider Department ([id number]) 05/21/19 2:00 PM YAMILEX MCLEOD [facility] During your visit today, we recorded the following informati on about you: Temperature Pulse Respiration Blood pressure 97.2 degrees 74/minute 16/minute 112/70 Weight 89.4 kg Keara Skinner LPN 05/21/2019 2:55 PM Signed 2.5 solution aerosol treatment given per provider's orders. Prior to treatment O2 sat is 97%. Treatment completed. O2 sat is 97%. Tolerated well. Keara Mcleod APRN.CNP 05/21/2019 2:58 PM Signed [facility] PATIENT INFO BRONCHITIS OVERVIEW Bronchitis develops when there is swelling and i rritation of the bronchi, the large tubes that carry air to the lungs. There are two typ es of bronchitis: acute (sudden onset) and chronic (long-standing). Acute bronchitis often occurs with a vir al infection, such as the common cold, and is sometimes called a chest cold. The most common symp aileen of acute bronchitis is a nagging cough. Treatment of acut e bronchitis usually involves treating the symptoms, such as sore throat and c ongestion. Antibiotics do not help to eliminate acute bronchitis caused by a virus. Antivi ral agents are useful in some cases of acute bronchitis due to influenza, b ut there are antiviral agents for other forms of viral bronchitis. BRONCHITIS CAUSES Most cases of bronchitis are caused by a viral infection of the upper airways, such as the common cold or the flu. Less commonly, a bacteri um such as pertussis (whooping cough) is the cause. BRONCHITIS SYMPTOMS The most common symptoms of acute bronchitis include: ? A persistent cough; this may last 10 to 20 days ? Some people cough up mucus, which may be clear, yellow, or green in color Fever is not common in people with acute bronchitis. H owever, having a fever can be a sign of another condition, such as the flu or pneum onia. Conditions with similar features ? There are other condition s that have symptoms similar to those of acute bronchitis. ? Chronic cough ? A persistent cough that lasts more than ei ght weeks is considered a chronic cough, which is discussed in detail els hetal. ? Chronic bronchitis ? Chronic bronchiti s is defined as a cough that occurs on most days of the month for at least three months of the year during two consecutive years. ? Pneumonia ? Signs of pneumonia include fever a nd a fast heart and breathing rate. ? Postnasal drip ? Postnasal drip occurs when secretions drain from the sinuses into the throat. This can cause the thro at to feel irritated, which causes you to feel like you need to clear your throat frequently. Postnasal drip can be caused by the common cold, allergies, sinusitis, or en vironmental irritants. BRONCHITIS DIAGNOSIS Most people who have a persistent cough after an upper respiratory infection (cold) do not need to see a healthcare provider. Diagn ostic testing, such as x-rays, cultures, and blood tests, are not usually needed for people with acute bronchitis. However, testing may be sanjana mmended if your diagnosis is not clear based upon your examination or if another condition, such as pneumonia, is suspected. When to seek help ? You shou ld call your healthcare provider if you have any of the following: ? Fever (temperature greater than 100.4? F or 38? C) ? A cough that lasts longer than 10 days ? Chest pain with coughing, difficulty breathing, or coughin g up blood ? A barking cough that makes it hard to speak, especially if it persists ? Cough accompanied by unexplained weight loss People who are older than 75 do not always have a fever or other concerning symptoms. If you are over 75 years and y ou have a persistent cough, you should call your clinician to determine if and when an office visit is recommended. BRONCHITIS TREATMENT Relief of symptoms ? There is no specific treatm ent for bronchitis, but there are a few treatments available for the common cold. ? A nonsteroidal antiinflammatory drug (ibuprofen, naproxen) , aspirin, or acetaminophen (Tylenol?) can help to relieve the pain of a s ore throat or headache. ? Pseudoephedrine is a decongestant that can improve nasal congestion. Most drugstores in the [place] carry pseudoephedrine behind the counter, so you must ask for it from the pharmacist (a prescription is n ot required). Other decongestants, such as phenylephrine, are not as effec tive as pseudoephedrine. Antihistamines such as diphe nhydramine (Benadryl?) may also help, but can cause side effects such as drowsiness and drying of the eyes, nose , and mouth. ? Heated, humidified, air can improve symptoms of nasa l congestion and runny nose, and has few to no side effects. ? Cough suppressants such as dextromethorphan may be helpful . Antibiotics ? Antibiotics ar e NOT helpful for most people with bronchitis since the illness is typically caused by a virus. Antibiotic s treat bacterial, not viral infections. Antibiotics may be helpful for some patien ts with other chronic diseases. Many people request antibiot ics in the hopes that it will get rid of the cough, and some people even think that antibiot ics have helped on previous occasions. However, there is no benefit of antibiotics for most cases o f bronchitis. PREVENTING THE SPREAD OF ILLNESS Hand washing is an essential and highly effective way to prevent the spread of infection. Wet your hands with water and plain s oap and rub them together for 15 to 30 seconds. Pay special attention to the fingernails, between the fingers, and the wrists. Rin se your hands thoroughly, and dry with a single use towel. Alcohol-based hand rubs are a good alternative for disinfecting hands if a sink is not available. Spread the hand rub over the entire surface of your hands, fingers, and wrists until dry. You can use hand rubs repeate dly without irritating the skin or losing effectiveness. Hand rubs are a vailable as a liquid or wipe in small, portable sizes that are easy to carry in a pocket or handbag. When a sink is available, you should wash vis ibly soiled hands with soap and water. Wash your hands before preparing food and eating, and after going to the bathroom, and after coughing, blowing the nose, or sne ezing. While it is not always possible to limit contact with people who are ill, avoid touching your eyes, nose, or mouth after direct contact, when possible. In addition, use a tissue to cover your mouth when sneezing or coughing. Throw away used tissues promptly a nd then wash your hands. Sneezing/coughing into the sleeve of your clothing (at the inner elbow) is another way of containing sprays of saliva and secretions and does not con taminate your hands. Sneezing and coughing without covering your mouth can spread infection to anyone within 6 feet. Yamilex Mcleod APRN.ELECTRONICS RESEARCH ENGINEER 05/21/2019 4:21 PM Signed Subjective HPI Pt presents with c/o nasal congestion, cough myalgias x 4 da ys. Cough is frequent, moist, frequently produces thick clear to yellow, thick mucous. +coughing fits, chest tightness and wheezing. Current everyday smoker. No hx asthma. Denies fever, chills, myalgias, dyspnea. Has not taken any OTC medications. Exposed to sick contacts at work. Did not receive influenza vaccine this season. Review of Systems Constitutional: Negative for chills and fever. HENT: Positive for congestion. Negative for ear pain, sinus pain and sore throat. Respiratory: Positive for cough and wheezing. Ne gative for hemoptysis, sputum production and shortness of breath. Cardiovascular: Negative for chest pain. Objective Physical Exam Constitutional: She is oriented to perso n, place, and time and well-developed, well-nourished, and in no distress. No distress. HENT: Head: Normocephalic. Right Ear: Hearing, tympanic membrane, external ear and ear canal normal. Left Ear: Hearing, tympanic membrane, external ear and ear c anal normal. Nose: Nose normal. Right sinus exhibits no maxillary s inus tenderness and no frontal sinus tenderness. Le ft sinus exhibits no maxillary sinus tenderness and no frontal sinus tenderness. Mouth/Throat: Uvula is midline, oropharynx is clear and mois t and mucous membranes are normal. No oropharyngeal exudate. Eyes: Pupils are equal, round, and react diann to light. Conjunctivae are normal. Right eye exhibits no discharge. Left eye exhibits no discha rge. Neck: Neck supple. Cardiovascular: Normal rate, regular rhythm and normal heart sounds. Exam reveals no gallop and no friction rub. No murmur heard. Pulmonary/Chest: Effort normal. No accessory muscle usage. N o respiratory distress. She has decreased breath sound s (Good air movement throughout. Pulse ox 98%). She has no wheezes. She has no rhonchi. She has no rales. Lymphadenopathy: She has no cervical adenopathy. Neurological: She is alert and oriented to person, place, an d time. Skin: Skin is warm and dry. She is not diaphoretic. BP 112/70 Pulse 74 Temp 36.2 ?C (97.2 ?F) (Tympanic) R lola 16 Wt 89.4 kg (197 lb) SpO2 97% BMI 31.32 kg/m? .Patient presents with: Sinus Problem: sinus pressure, drainage, headache, cough, ea rs popping, bodyaches x 4 days PAST MEDICAL HISTORY Diagnosis Date - Anxiety disorder in conditions classified elsewhere - Plantar fascial fibromatosis PAST SURGICAL HISTORY Procedure Laterality Date - NONE ALLERGIES Amoxil [Amoxicillin]; Darvocet A500 [P ropoxyphene N-Acetaminophen]; Naproxen; Penicillins MEDICATIONS ZOLPIDEM TARTRATE (AMBIEN ORAL) Take by mouth. ALPRAZolam (XANAX) 0.5 mg ORAL tablet Ta ke one(1) tablet four (4) times daily. etonogestrel(IMPLANON 68 MG SUBDERMAL IMPLANT) use as direct ed guaiFENesin (MUCINEX) 600 mg 12 hr table t Take 2 tablets by mouth twice daily. benzonatate (TESSALON PERLES) 100 mg capsule Take 1 capsule by mouth three times daily as needed. albuterol HFA (PROVENTIL HFA, VENTOLIN HFA) 90 m cg/actuation inhaler Inhale 2 Puffs as instructed every 4 hours as needed. Inhalational Spacing Device spcr 1 Device one time only for 1 dose. Ipratropium (ATROVENT) 17 mcg/actuation inhaler Inhale 2 Puffs as instructed every 6 hours. benzonatate (TESSALON PERLE) 100 mg capsule Take 2 capsules by mouth three times daily as needed. FAMILY HISTORY Problem Relation Age of Onset - Diabetes Mother - Emphysema Mother - Alcohol/Drug Mother - Hypertension Mother - other (UNKNOWN) Father - Stroke Maternal Grandmother - Hypertension Maternal Grandmother - Psychiatry Maternal Grandfather SCHIZOPHRENIA - Psychiatry Maternal Aunt BIPOLAR - Hypertension Maternal Aunt Social History Tobacco Use - Smoking status: Current Every Day Smoker Packs/day: 1.00 Years: 7.00 Pack years: 7.00 Types: Cigarettes - Smokeless tobacco: Never Used Substance Use Topics - Alcohol use: No - Drug use: No ASSESSMENT/PLAN: 1. Bronchitis - ICD9: 490, ICD10: J40 (primary diagnosis) - MUCINEX 600 MG TABLET, EXTENDED RELEASE - BENZONATATE 100 MG CAPSULE - ALBUTEROL SULFATE HFA 90 MCG/ACTUATION AEROSOL INHALER - INHALATIONAL SPACING DEVICE - IPRATROPIUM BROMIDE 17 MCG/ACTUATION HFA AEROSOL INHALER 2. Cough - ICD9: 786.2, ICD10: R05 - XR CHEST 2V FRONTAL/LAT Impression: no acute process. 3. Wheezing - ICD9: 786.07, ICD10: R06.2 - ALBUTEROL SULFATE 2.5 MG/3 ML (0.083 %) SOLUTION FOR NEBUL IZATION 4. Tobacco abuse - ICD9: 305.1, ICD10: Z72.0 - Cessation encouraged. Reviewed and printed bronchitis education and red flag SANDS . The patient is instructed to return or seek emergency sal tment if symptoms become worse or with any acute change in condition. The patient verbalizes understanding and is in agreement w ith plan of care. Yamilex Mcleod CNP Referring Provider: SELF [[id number]] Allergies As of Date: 05/21/2019 Noted Allergy Reaction AMOXIL (AMOXICILLIN) 05/02/2005 4 - Hives DARVOCET A500 (PROPOXYPHENE N-JJ*11/18/2005 4 - Hives NAPROXEN 11/25/2005 2 - Rash 9 - Itching PENICILLINS 11/18/2005 4 - Hives Date Reviewed: 05/21/2019 Reviewed by: Marissa Samuel Ma - Fully Assessed Reason for Visit: Sinus Problem [99] Cmt: sinus pressure, drainage, headache, cough, ears popping, bodyaches x 4 days Primary Visit Diagnosis:Bronchitis [J40] Other Visit Diagnoses:Cough [R05] Wheezing [R06.2] Tobacco abuse [Z72.0] Order(s):XR CHEST 2V FRONTAL/LAT [[id number]] Order #: [id number] FUTURE [] albuterol 2.5 mg /3 mL (0.083 %) 2.5 mg (PROVENTIL )Disp: Rfl: guaiFENesin (MUCINEX) 600 mg 12 hr tabletTake 2 tablets by m outh twice daily.Disp: 30 tabletRfl: 0 benzonatate (TESSALON PERLES) 100 mg capsuleTake 1 capsule b y mouth three times daily as needed.Disp: 40 capsuleRfl: 0 albuterol HFA (PROVENTIL HFA, VENTOLIN HFA) 90 mcg/actuation inhalerInhale 2 Puffs as instructed every 4 hours as needed. Disp: 1 InhalerRfl: 0 Inhalational Spacing Device spcr1 Device one time only for 1 dose.Disp: 1 EachRfl: 0 Ipratropium (ATROVENT) 17 mcg/actuation inhalerInhale 2 Puff s as instructed every 6 hours.Disp: 1 InhalerRfl: 0 Prescriptions as of 05/21/2019 Sig: AMBIEN ORAL Take by mouth. ALPRAZOLAM 0.5 MG TABLET Take one(1) tablet four (4) t* IMPLANON 68 MG SUBDERMAL IMPL* use as directed MUCINEX 600 MG TABLET, EXTEND* Take 2 tablets by mouth twice * BENZONATATE 100 MG CAPSULE Take 1 capsule by mouth three* ALBUTEROL SULFATE HFA 90 MCG/* Inhale 2 Puffs as instructed * INHALATIONAL SPACING DEVICE 1 Device one time only for 1 * IPRATROPIUM BROMIDE 17 MCG/AC* Inhale 2 Puffs as instructed * BENZONATATE 100 MG CAPSULE Take 2 capsules by mouth thre* Patient not taking: Reported on 05/21/2019 Problem List As Of Date 05/21/2019 Noted Resolved PLANTAR Fasciitis [M72.2] 11/25/2005 ENTHESOPATHY, SITE NOS [M77.9] 11/25/2005 ALLERGIC RHINITIS NOS [J30.9] 12/14/2005 Other instructions from your clinician: EXPRESS [facility]ARE PATIENT INFO BRONCHITIS OVERVIEW Bronchitis develops when there is swelling and irritation of the bronchi, the large tubes that carry air to the lungs. There are two t ypes of bronchitis: acute (sudden onset) and chronic (long-standing) . Acute bronchitis often occurs with a viral infection, such a s the common cold, and is sometimes called a chest cold. The most commo n symptom of acute bronchitis is a nagging cough. Treatment of acute bron chitis usually involves treating the symptoms, such as sore throat and warren estion. Antibiotics do not help to eliminate acute bronchitis caused by a virus. Antiviral agents are useful in some cases of acute bronchiti s due to influenza, but there are antiviral agents for other forms of viral bronchitis. BRONCHITIS CAUSES Most cases of bronchitis are caused by a viral infection of the upper airways, such as the common cold or the flu. Less commonly, a bacterium such as pertussis (whooping cough) is the cause. BRONCHITIS SYMPTOMS The most common symptoms of acute bronchitis include: ? A persistent cough; this may last 10 to 20 days ? Some people cough up mucus, which may be clear, yellow, or green in color Fever is not common in people with acute bronchitis. However , having a fever can be a sign of another condition, such as the flu or pneumonia. Conditions with similar features ? There are other condition s that have symptoms similar to those of acute bronchitis. ? Chronic cough ? A persistent cough that lasts more than ei ght weeks is considered a chronic cough, which is discussed in detail els ewhere. ? Chronic bronchitis ? Chronic bronchitis is defined as a co ugh that occurs on most days of the month for at least three months o f the year during two consecutive years. ? Pneumonia ? Signs of pneumonia include fever and a fast he art and breathing rate. ? Postnasal drip ? Postnasal drip occurs when secretions ortega in from the sinuses into the throat. This can cause the throat to feel i rritated, which causes you to feel like you need to clear your throat frequently. Postnasal drip can be caused by the common cold, allergies, sinusitis, or environmental irritants. BRONCHITIS DIAGNOSIS Most people who have a persistent cough after an upper respi ratory infection (cold) do not need to see a healthcare provider. D iagnostic testing, such as x-rays, cultures, and blood tests, are not usually needed for people with acute bronchitis. However, testing may be re commended if your diagnosis is not clear based upon your examination or i f another condition, such as pneumonia, is suspected. When to seek help ? You should call your healthcare provider if you have any of the following: ? Fever (temperature greater than 100.4? F or 38? C) ? A cough that lasts longer than 10 days ? Chest pain with coughing, difficulty breathing, or coughin g up blood ? A barking cough that makes it hard to speak, especially if it persists ? Cough accompanied by unexplained weight loss People who are older than 75 do not always have a fever or o ther concerning symptoms. If you are over 75 years and you have a persistent cough, you should call your clinician to determine if and wh en an office visit is recommended. BRONCHITIS TREATMENT Relief of symptoms ? There is no specific treatment for bron chitis, but there are a few treatments available for the common cold. ? A nonsteroidal antiinflammatory drug (ibuprofen, naproxen) , aspirin, or acetaminophen (Tylenol?) can help to relieve the pain of a s ore throat or headache. ? Pseudoephedrine is a decongestant that can improve nasal c ongestion. Most drugstores in the [place] carry pseudoephedrine b ehind the counter, so you must ask for it from the pharmacist (a presc ription is not required). Other decongestants, such as phenylephrine, are not as effec tive as pseudoephedrine. Antihistamines such as diphenhydramine (Benadryl?) may also help, but can cause side effects such as drowsiness and drying of the eyes , nose, and mouth. ? Heated, humidified, air can improve symptoms of nasal warren estion and runny nose, and has few to no side effects. ? Cough suppressants such as dextromethorphan may be helpful . Antibiotics ? Antibiotics are NOT helpful for most people wi th bronchitis since the illness is typically caused by a virus. Antibiotic s treat bacterial, not viral infections. Antibiotics may be helpful for some patients with other chronic diseases. Many people request antibiotics in the hopes that it will ge t rid of the cough, and some people even think that antibiotics have help ed on previous occasions. However, there is no benefit of antibiotics for m ost cases of bronchitis. PREVENTING THE SPREAD OF ILLNESS Hand washing is an essential and highly effective way to pre vent the spread of infection. Wet your hands with water and plain soa p and rub them together for 15 to 30 seconds. Pay special attention to the fingernails, between the fingers, and the wrists. Rinse your hands thorou ghly, and dry with a single use towel. Alcohol-based hand rubs are a good alternative for disinfect ing hands if a sink is not available. Spread the hand rub over the entire s urface of your hands, fingers, and wrists until dry. You can use hand rubs repeatedly without irritating the skin or losing effectiveness. Hand ru bs are available as a liquid or wipe in small, portable sizes that are easy to carry in a pocket or handbag. When a sink is available, you should wash visibly soiled hands with soap and water. Wash your hands before preparing food and eating, and after going to the bathroom, and after coughing, blowing the nose, or sneezing. While it is not always possible to limit contact with people who are ill , avoid touching your eyes, nose, or mouth after direct contact, whe n possible. In addition, use a tissue to cover your mouth when sneezing or coughing. Throw away used tissues promptly and then wash your hands. Sneezing/coughing into the sleeve of your clothing (at the i nner elbow) is another way of containing sprays of saliva and secretions an d does not contaminate your hands. Sneezing and coughing without coveri ng your mouth can spread infection to anyone within 6 feet. Visit Notes: >> Keara Skinner LPN светлана May 21, 2019 2:55 PM Status: Sign ed 2.5 solution aerosol treatment given per provider's orders. Prior to treatment O2 sat is 97%. Treatment completed. O2 sat is 97%. Tolerated well. Keara Skinner LPN Prescriptions ordered this encounter Disp Refills Start End ALBUTEROL SULFATE 2.5 MG/3 ML (0.083* 05/21/2019 05/21/2019 Route: INHALATION MUCINEX 600 MG TABLET, EXTENDED RELE* 30 t* 0 05/21/2019 Route: ORAL Sig: Take 2 tablets by mouth twice daily. BENZONATATE 100 MG CAPSULE 40 c* 0 05/21/2019 Route: ORAL Sig: Take 1 capsule by mouth three times daily as needed. ALBUTEROL SULFATE HFA 90 MCG/ACTUATI* 1 In* 0 05/21/2019 Route: INHALATION Sig: Inhale 2 Puffs as instructed every 4 hours as needed. INHALATIONAL SPACING DEVICE 1 Ea* 0 05/21/2019 05/21/2019 Route: Misc Si Device one time only for 1 dose. IPRATROPIUM BROMIDE 17 MCG/ACTUATION* 1 In* 0 05/21/2019 Route: INHALATION Sig: Inhale 2 Puffs as instructed every 6 hours. Letter Text Encounter Status:Closed by YAMILEX MCLEOD CNP on 05/21 progress on 2019-04 PROGRESS HNO ID: [id number] Normal 04-10-2019 [facility] Author: Juana Watts [place] ([id number]) Service: ? Author Type: Nurse Practitioner Type: Progress Notes Filed: 04/10/2019 7:16 PM Note Text: Subjective HPI Corwin Mcmillan is a 33 year old female who presents with hea dache, bilateral ear pain, and sinus congestion for the last 2 days . She has taken some mucinex without improvement. Review of Systems Constitutional: Positive for diaphoresis and malaise/fatigue . Negative for chills and fever. HENT: Positive for congestion, ear pain, sinus pain and sore throat. Respiratory: Positive for cough. Negative for sputum product ion, shortness of breath and wheezing. Cardiovascular: Negative for chest pain and palpitations. Neurological: Positive for headaches. BP 122/80 Pulse 82 Temp 36.8 ?C (98.2 ?F) (Tympanic) R lola 16 Wt 88.9 kg (196 lb) SpO2 97% BMI 31.16 kg/m? PAST MEDICAL HISTORY Diagnosis Date - Anxiety disorder in conditions classified elsewhere - Plantar fascial fibromatosis PAST SURGICAL HISTORY Procedure Laterality Date - NONE ALLERGIES Amoxil [Amoxicillin]; Darvocet A500 [Propoxyphene N-Acetaminophen]; Naproxen; Penicillins MEDICATIONS ZOLPIDEM TARTRATE (AMBIEN ORAL) Take by mouth. ALPRAZolam (XANAX) 0.5 mg ORAL tablet Take one(1) tablet fou r (4) times daily. etonogestrel(IMPLANON 68 MG SUBDERMAL IMPLANT) use as direct ed FAMILY HISTORY Problem Relation Age of Onset - Diabetes Mother - Emphysema Mother - Alcohol/Drug Mother - Hypertension Mother - other (UNKNOWN) Father - Stroke Maternal Grandmother - Hypertension Maternal Grandmother - Psychiatry Maternal Grandfather SCHIZOPHRENIA - Psychiatry Maternal Aunt BIPOLAR - Hypertension Maternal Aunt Social History Tobacco Use - Smoking status: Current Every Day Smoker Packs/day: 1.00 Years: 7.00 Pack years: 7.00 Types: Cigarettes - Smokeless tobacco: Never Used Substance Use Topics - Alcohol use: No - Drug use: No Objective Physical Exam Constitutional: She is oriented to person, place, and time a nd well-developed, well-nourished, and in no distress. HENT: Head: Normocephalic and atraumatic. Right Ear: Tympanic membrane is bulging. Tympanic membrane i s not erythematous. No middle ear effusion. Left Ear: Tympanic membrane is bulging. Tympanic membrane is not erythematous. No middle ear effusion. Nose: Mucosal edema and rhinorrhea present. Right sinus exhi bits no maxillary sinus tenderness and no frontal sinus tenderness. Left sinus exhibits no maxillary sinus tenderness and no frontal sinus tenderness. Mouth/Throat: No posterior oropharyngeal edema or posterior oropharyngeal erythema. Eyes: Conjunctivae are normal. Cardiovascular: Normal rate, regular rhythm, normal heart so unds and intact distal pulses. Exam reveals no gallop and no friction rub. No murmur heard. Pulmonary/Chest: Effort normal and breath sounds normal. No respiratory distress. She has no wheezes. She has no rales. She exhibits no tenderness. Musculoskeletal: She exhibits no edema. Lymphadenopathy: She has no cervical adenopathy. Neurological: She is alert and oriented to person, place, an d time. Gait normal. Skin: Skin is warm and dry. She is not diaphoretic. Psychiatric: Mood, memory, affect and judgment normal. ASSESSMENT/PLAN: 1. Viral URI with cough - ICD9: 465.9, ICD10: J06.9, B97.89 - Discussed viral etiology and rationale for treatment. - Rapid strep negative in office today - Send out throat culture pending, Will only call if Strep c ulture is positive. - Symptomatic treatment with prn analgesia - Supportive care with fluids and rest - BENZONATATE 100 MG CAPSULE - FLUTICASONE PROPIONATE 50 MCG/ACTUATION NASAL SPRAY,SUSPEN RICHARD - GROUP A STREPTOCOCCUS BY PCR Patient understands if he/she develops any shortness of james th, chest pain, or persistent fever, they should be taken to the ER im mediately or call 911. All of the above discussed with the patient in detail. Noni nt is in agreement with the above plan. Treatment and plan of care di scussed including course of treatment, possible medication side effe cts, and what to watch for in regards to worsening signs and symptoms. All questions addressed. Juana Watts, EDUCATIONAL THERAPIST.ELECTRONICS RESEARCH ENGINEER group a strep by pcr on 2019-04-10 GAS Specimen Source Throat Swab Normal 04-10-[address] [facility] ([id number]) Comment: Performed By: #### GASPCR ## ## [facility] [address] [id number] Group A Strep PCR Negative for Group A Normal 1 [facility] Streptococcus by PCR. [place] ([id number]) Comment: Result Comment: This test wa s developed and its performance characteristics determined by [facility]'s Zane Gutierrez [facility] Pathology and Laboratory Medicine [place] ([facility] It has not been cleared or a pproved by the FDA. [facility] is regulated under CLIA as qualified to perform high complexity testing. This test is used for clinical purposes. It should not be regarded as inv estigational or for research . Performed By: #### GASPCR ## ## [facility] [address] [place] [id number] cnov on 2019-04-10 CNOV Office Visit ([facility]) Normal 04-10-20 19 [facility] CORWIN MCMILLAN ([id number]) 1985 [facility] Time Provider Department ([id number]) 04/10/19 6:45 PM JUANA WATTS [facility] During your visit today, we recorded the following informati on about you: Temperature Pulse Respiration Blood pressure 98.2 degrees 82/minute 16/minute 122/80 Weight 88.9 kg Juana Watts APRN.ELECTRONICS RESEARCH ENGINEER 04/10/2019 7:16 PM Signed Subjective HPI Corwin Mcmillan is a 33 year old female who presents wi th headache, bilateral ear pain, and sinus congestion for the l ast 2 days. She has taken some mucinex without improvement. Review of Systems Constitutional: Positive for diaphoresis and malaise/fatigue . Negative for chills and fever. HENT: Positive for congestion, ear pain, sinus pain and sore throat. Respiratory: Positive for cough. Negative for sp utum production, shortness of breath and wheezing. Cardiovascular: Negative for chest pain and palpitations. Neurological: Positive for headaches. BP 122/80 Pulse 82 Temp 36.8 ?C (98.2 ?F) (Tympanic) R lola 16 Wt 88.9 kg (196 lb) SpO2 97% BMI 31.16 kg/m? PAST MEDICAL HISTORY Diagnosis Date - Anxiety disorder in conditions classified elsewhere - Plantar fascial fibromatosis PAST SURGICAL HISTORY Procedure Laterality Date - NONE ALLERGIES Amoxil [Amoxicillin]; Darvocet A500 [P ropoxyphene N-Acetaminophen]; Naproxen; Penicillins MEDICATIONS ZOLPIDEM TARTRATE (AMBIEN ORAL) Take by mouth. ALPRAZolam (XANAX) 0.5 mg ORAL tablet Ta ke one(1) tablet four (4) times daily. etonogestrel(IMPLANON 68 MG SUBDERMAL IMPLANT) use as direct ed FAMILY HISTORY Problem Relation Age of Onset - Diabetes Mother - Emphysema Mother - Alcohol/Drug Mother - Hypertension Mother - other (UNKNOWN) Father - Stroke Maternal Grandmother - Hypertension Maternal Grandmother - Psychiatry Maternal Grandfather SCHIZOPHRENIA - Psychiatry Maternal Aunt BIPOLAR - Hypertension Maternal Aunt Social History Tobacco Use - Smoking status: Current Every Day Smoker Packs/day: 1.00 Years: 7.00 Pack years: 7.00 Types: Cigarettes - Smokeless tobacco: Never Used Substance Use Topics - Alcohol use: No - Drug use: No Objective Physical Exam Constitutional: She is oriented to perso n, place, and time and well-developed, well-nourished, and in no distress. HENT: Head: Normocephalic and atraumatic. Right Ear: Tympanic membrane is bulging. Tympanic membrane is not erythematous. No middle ear effusion. Left Ear: Tympanic membrane is bulging. Tympanic membrane is not erythematous. No middle ear effusion. Nose: Mucosal edema and rhinorrhea present. Righ t sinus exhibits no maxillary sinus tenderness and no frontal sinus tenderness. Left sinus exhibits no maxillary sinus tenderness and no frontal sinus tenderness. Mouth/Throat: No posterior oropharyngeal edema or posterior oropharyngeal erythema. Eyes: Conjunctivae are normal. Cardiovascular: Normal rate, regular rhythm, normal heart sounds and intact distal pulses. Exam reveals no gallop and no friction rub. No murmur heard. Pulmonary/Chest: Effort normal and breath sounds normal. No respiratory distress. She has no wheezes. She has no rales. She exhibi ts no tenderness. Musculoskeletal: She exhibits no edema. Lymphadenopathy: She has no cervical adenopathy. Neurological: She is alert and oriented to person, place, an d time. Gait normal. Skin: Skin is warm and dry. She is not diaphoretic. Psychiatric: Mood, memory, affect and judgment normal. ASSESSMENT/PLAN: 1. Viral URI with cough - ICD9: 465.9, ICD10: J06.9, B97.89 - Discussed viral etiology and rationale for treatment. - Rapid strep negative in office today - Send out throat culture pe [facility], Will only call if Strep culture is positive. - Symptomatic treatment with prn analgesia - Supportive care with fluids and rest - BENZONATATE 100 MG CAPSULE - FLUTICASONE PROPIONATE 50 MCG/ACTUATION NASAL SPRAY,SUSPEN RICHARD - GROUP A STREPTOCOCCUS BY PCR Patient understands if he/she develops a ny shortness of breath, chest pain, or persistent fever, they should be taken to the ER immediately or call 911. All of the above discussed with the carlitos ent in detail. Patient is in agreement with the above plan. Treatment and plan of care discussed including course of treatment, possible medication side effects, and what to watch for in regards to worsening signs and symptoms. All questions addressed. IRINEO Negro APRN.CNP 04/10/2019 7:19 PM Signed Addended by: JUANA WATTS APRN.CNP on: 04/10/2019 07:19 P M Modules accepted: Orders Keara Skinner LPN 04/10/2019 7:19 PM Signed Addended by: KEARA SKINNER LPN on: 04/10/2019 07:19 PM Modules accepted: Orders Referring Provider: SELF [200] Allergies As of Date: 04/10/2019 Noted Allergy Reaction AMOXIL (AMOXICILLIN) 05/02/2005 4 - Hives DARVOCET A500 (PROPOXYPHENE N-JJ*11/18/2005 4 - Hives NAPROXEN 11/25/2005 2 - Rash 9 - Itching PENICILLINS 11/18/2005 4 - Hives Date Reviewed: 04/10/2019 Reviewed by: Marissa Samuel Ma - Fully Assessed Reason for Visit: Sinus Problem [99] Cmt: sinus pressure,drainage, cough , bilateral ear pain x this am Visit Diagnosis:Viral URI with cough [J06.9, B97.89] Order(s):benzonatate (TESSALON PERLE) 100 mg capsuleTa ke 2 capsules by mouth three times daily as needed.Disp: 42 capsuleRfl: 0 fluticasone (FLONASE) 50 mcg/actuation nasal sprayUse 2 Spra ys in each nostril once daily.Disp: 1 BottleRfl: 1 GROUP A STREPTOCOCCUS BY PCR [SQGASPCR] Order #: [id number] RAPID STREP TEST B/O [[id number]] Order #: [id number] Prescriptions as of 04/10/2019 Sig: AMBIEN ORAL Take by mouth. ALPRAZOLAM 0.5 MG TABLET Take one(1) tablet four (4) t* IMPLANON 68 MG SUBDERMAL IMPL* use as directed BENZONATATE 100 MG CAPSULE Take 2 capsules by mouth thre* FLUTICASONE PROPIONATE 50 MCG* Use 2 Sprays in each nostril * Problem List As Of Date 04/10/2019 Noted Resolved PLANTAR Fasciitis [M72.2] INVALID FOR* ENTHESOPATHY, SITE NOS [M77.9] INVALID FOR* ALLERGIC RHINITIS NOS [J30.9] INVALID FOR* Prescriptions ordered this encounter Disp Refills Start End BENZONATATE 100 MG CAPSULE 42 c* 0 04/10/2019 Route: ORAL Sig: Take 2 capsules by mouth three times daily as needed. FLUTICASONE PROPIONATE 50 MCG/ACTUAT* 1 Rodríguez* 1 04/10/201907/2018 Route: EACH NOSTRIL Sig: Use 2 Sprays in each nostril once daily. Letter Text Encounter Status:Closed by JUANA WATTS APRN.CNP on 04/10 Summary Purpose Family History No Family History Records Found Advance Directives No Advanced Directives Records Found Additional Source Comments FOR RECORDS PERTAINING TO PATIENTS WHO ARE OR HAVE BEEN ENROLLED IN A CHEMICAL DEPENDENCY/SUBSTANCE ABUSE PROGRAM, SOME INFORMATION MAY BE OMITTED. This clinical summary was aggregated from multiple sources. Caution should be exercised in using it in the provision of clinical care. This summary normalizes information from multiple sources, and as a consequence, information in this document may materially changethe coding, format and clinical context of patient data. In addition, data may be omittedin some cases. CLINICAL DECISIONS SHOULD BE BASED ON THE PRIMARY CLINICAL RECORDS. [facility] provides no warranty or guarantee of the accuracy or completeness of information in this document. UNRECOGNIZED CONTENT PROVIDED BELOW FOR UNRECOGNIZED SECTION INFORMATION SOURCE DATE CREATED AUTHOR AUTHOR'S ORGANIZATIO N 11/20/2019 [facility] heena
--- OUTSIDE RECORDS SUMMARY | 2020-04-26 12:12 | XMS RPT_ITS | CCD ---
:1985 External Reference #:[id number] Demographics Address [address] [place] [address] Preferred Language Unknown Marital Status Unknown Christianity Affiliation Unknown Race White Ethnic Group Unknown Author Organization [employer] Care Team Providers Name Role Phone Unavailable Unavailable Unavailable Results Result Name Value Range Unit Interpretation Flag Date Location progress on 2019-11 PROGRESS HNO ID: [id number] Normal 11-20-2019 [facility] Author: Prem (Radio Repair Teacher) Marie Diaz ([id number]) Service: ? Author Type: Nurse Practitioner Type: [...] . No oropharyngeal exudate, posterior oropharyngeal edema, military source operations specialist ior oropharyngeal erythema or tonsillar abscesses. Erythematous [...] care. This no te was generated using [employer] software. It may contain errors in wo rding, punctuation, or spelling. Prem Salazar APRN.ANTOINE tate on 2019-11-20 CNOV Office Visit ([facility]) Normal 11-19- 20 [place] MCMILLANCORWIN ([id number]) 1985 [facility] Date Time Provider Department ([id number]) 11/20/19 3:15 PM PREM SALAZAR ([facility]) [facility] During your visit today, we recorded the following informati on about you: Temperature Pulse Respiration Blood pressure 97.1 degrees 84/minute 16/minute 120/84 Weight 81.6 kg Prem Salazar APRN.STAFF CERTIFIED NURSE MIDWIFE 11/20/2019 3:53 PM Signed Subjective HPI Nontoxic-appearing [...] care . This note was generated using [employer] software. It may contain errors in wording, punctuation, or spelling. Prem Salazar APRN.STAFF CERTIFIED NURSE MIDWIFE Referring Provider: SELF [200] Allergies As of [...] on progress on 2019-07 PROGRESS HNO ID: [id number] Normal 07-25-2019 [facility] Author: Briana Yo Diaz ([id number]) Service: ? Author Type: Nurse Practitioner Type: [...] 30.47 kg/(m2). test: n/a Nexplanon lot #: [id number] Exp date: 12/24/21 UNIVERSAL PROTOCOL / SAFETY [...] 2019-07-25 CNOV Office Visit ([facility]) Normal 07-25-2019 [facility] CORWIN MCMILLAN ([id number]) 1985 [facility] Date Time Provider Department ([id number]) 07/25/19 1:00 PM BRIANA YO (ANTOINE) [facility] During your visit today, we recorded the following informati on about you: Blood pressure Weight Height Last Period 122/64 86.9 kg 1.689 m 06/29/19 Briana Yo APRN.CNP 07/25/2019 2:01 PM Signed Corwin Mcmillan is a 33 year old female who prese [facility] for Nexplanon removal for scheduled 3 [...] 30.47 kg/(m2). test: n/a Nexplanon lot #: [id number] Exp date: 12/24/21 UNIVERSAL PROTOCOL / SAFETY [...] implantable subdermal con traceptive [Z30.017] Order(s):NEXPLANON INSERTION [[id number]] Order #: [id number] etonogestrel subdermal implant 68 mg (NEXPLANON)Disp: Rfl: [...] * *Final Report* * * Normal 05-21 [facility] FRONTAL/LAT DATE OF EXAM: May 21 2019 2:38PM [place] WOX [id number] - XR CHEST 2V FRONTAL/LAT / ([id number]) PROCEDURE REASON: Cough * * * * [...] IMPRESSION: No acute pulmonary process is identified. Harness Inspector: PSCB Transcribe Date/Time: May 21 2019 2:43P Dictated by : CONG WILKINS MD This examination was interpreted and the report reviewed and electronically signed by: CONG WILKINS MD on May 21 2019 2:43PM EST [id number] progress on 2019-05 PROGRESS HNO ID: [id number] Normal 05-21-2019 [facility] Author: Yamilex Mcleod [place] ([id number]) Service: ? Author Type: Nurse Practitioner Type: [...] care. Yamilex Mcleod CNP PROGRESS HNO ID: [id number] Normal 05-21-2019 [facility] Author: Bianca Oswald (Rt) [place] ([id number]) Service: ? Author Type: Grease Remover Type: Progress Notes Filed: 05/21/2019 2:39 PM [...] 2019-05-21 CNOV Office Visit ([facility]) Normal 05-21-[address] [place] [address] [facility] CORWIN MCMILLAN ([id number]) 1985 [facility] Date Time Provider Department ([id number]) 05/21/19 2:00 PM YAMILEX MCLEOD [facility] During your visit today, we recorded the [...] to anyone within 6 feet. Yamilex Mcleod APRN.STAFF CERTIFIED NURSE MIDWIFE 05/21/2019 4:21 PM Signed Subjective HPI Pt [...] Tobacco abuse [Z72.0] Order(s):XR CHEST 2V FRONTAL/LAT [[id number]] Order #: [id number] FUTURE [] albuterol 2.5 mg /3 [...] 05/21 progress on 2019-04 PROGRESS HNO ID: [id number] Normal 04-10-2019 [facility] Author: Juana Watts [place] ([id number]) Service: ? Author Type: Nurse Practitioner Type: [...] and symptoms. All questions addressed. Juana Watts, RETAIL ROUTE SUPERVISOR.STAFF CERTIFIED NURSE MIDWIFE group a strep by pcr on 2019-04-10 GAS Specimen Source Throat Swab Normal 04-10-20 19 [facility] ([id number]) Comment: Performed By: #### GASPCR ## ## [facility] [address] [id number] Group A Strep PCR Negative for Group A Normal 1 [facility] Streptococcus by PCR. [place] ([id number]) Comment: Result Comment: This test wa s developed and its performance characteristics determined by [facility]'s Zane Gutierrez [facility] Pathology and Laboratory Medicine [place] ([facility]). It has not been cleared or a pproved by the FDA. [facility] is regulated under CLIA as qualified to perform high complexity testing. This test is used for clinical purposes. It should not be regarded as inv estigational or for research . Performed By: #### GASPCR ## ## [facility] [address] [place] [id number] cnov on 2019-04-10 CNOV Office Visit ([facility]) Normal 04-10-20 19 [facility] CORWIN MCMILLAN ([id number]) 1985 [facility] Time Provider Department ([id number]) 04/10/19 6:45 PM JUANA WATTS [facility] During your visit today, we recorded the following informati on about you: Temperature Pulse Respiration Blood pressure 98.2 degrees 82/minute 16/minute 122/80 Weight 88.9 kg Juana Watts APRN.STAFF CERTIFIED NURSE MIDWIFE 04/10/2019 7:16 PM Signed Subjective HPI Corwin [...] today - Send out throat culture pe [facility], Will only call if Strep culture [...] All of the above discussed with the cariltos ent in detail. Patient is in agreement [...] A STREPTOCOCCUS BY PCR [SQGASPCR] Order #: [id number] RAPID STREP TEST B/O [[id number]] Order #: [id number] Prescriptions as of 04/10/2019 Sig: AMBIEN ORAL [...] BE BASED ON THE PRIMARY CLINICAL RECORDS. [facility] provides no warranty or guarantee of the accuracy or completeness of information in this document. UNRECOGNIZED CONTENT PROVIDED BELOW FOR UNRECOGNIZED SECTION INFORMATION SOURCE DATE CREATED AUTHOR AUTHOR'S ORGANIZATIO N 11/20/2019 [facility] heena
== END 2019-12-20 00:10 | disposition home or self-care (01) ==
LOC: ED 23:54
PROVIDERS: Emergency Provider Emergency Medicine
DX: N89.8 Other specified noninflammatory disorders of vagina (principal); F17.200 Nicotine dependence, unspecified, uncomplicated
CPT/HCPCS: 87491; 87591; 96372; 99283

== ENCOUNTER 2021-02-17 09:41 | Emergency (ER) | payer MEDICAID, SELFPAY ==
[2021-02-17 09:42] VITALS: BP 124/67; PULSE 88; RESP 16; TEMP 36.3; O2SAT 96; BMI 24.4
--- NOTE | 2021-02-17 09:58 | EDS_ITS ---
HPI History of Present Illness Chief Complaint: Back Informant: patient Narrative Narrative: 35-year-old female presents the emergency room with 2 issues. The first is some upper back muscle soreness which began today. Yesterday she was lifting some area of the railroad ties. She tried stretching it out but has not relieved it. She also states that a filling on her tooth in which her partials connect to fell out several weeks ago. She states she has an appointment in July with her dentist. She states that she almost came up here last week with it but realizes that there is not much that we can do for her. She notes sensitivity of the tooth when she eats. She states that she is very frustrated with all of her medical problems currently [facility] Medical History Anxiety Depression Home Medications alprazolam 0.5 mg PO 4X/DAY PRN 12/11/13 [History Last Taken Unknown] zolpidem [Ambien] 10 mg PO QHS PRN PRN 12/11/13 [History Last Taken Unknown] cyclobenzaprine 10 mg PO TID PRN #15 tablet 02/17/21 [Rx Last Taken Unknown] Allergy/AdvReac Type Severity Reaction Status Date / Time acetaminophen Allergy Hives Verified 02/17/21 09:42 [From Darvocet-N] Penicillins Allergy Hives Verified 02/17/21 09:42 propoxyphene napsylate Allergy Hives Verified 02/17/21 09:42 [From Darvocet-N] amoxicillin AdvReac Hives Verified 02/17/21 09:42 Social History (Updated 02/17/21 @ 09:[address] Alonso Allan DO) Smoking Status: Current every day smoker tobacco type: cigarettes substance use type: does not use ROS ROS ED Constitutional Constitutional ED: Denies chills or weight loss Eyes Eyes: Denies change in vision or diplopia ENT ENT ED: Reports other Details: See history of present illness ; Denies ear pain, rhinorrhea or sore throat Cardiovascular Cardiovascular: Denies chest pain, orthopnea, palpitations or racing heartbeat Respiratory/Chest Respiratory/Chest: Denies cough, dyspnea or orthopnea Gastrointestinal Gastrointestinal: Denies abdominal pain, diarrhea, nausea or vomiting Genitourinary Genitourinary ED: Denies dysuria, hematuria or urinary frequency Musculoskeletal Musculoskeletal: Reports back pain; Denies arthralgias or myalgias Integumentary Denies abscess or rash Neurologic Neurologic: Denies headache(s) or weakness Psychiatric Psychiatric: Denies anxiety, depression, suicidal ideation or suicidal thoughts Endocrine Endocrinology: Denies polydipsia, polyphagia or polyuria Allergic/Immunologic Allergic/Immunologic ED: Denies mouth swelling, tongue swelling or urticaria EXAM Physical Exam Const Vital Signs: 02/17/21 09:42 Temperature 97.4 F L Temperature Source Temporal Pulse Rate 88 Respiratory Rate 16 Blood Pressure 124/67 H Blood Pressure Mean 86 Pulse Ox 96 Oxygen Delivery Method Room Air Positive well nourished and well developed General Appearance ED: well developed HEENT Reports normocephalic, head/scalp atraumatic and moist mucous membranes HEENT Narrative: There is one of the few remaining teeth on the left lower side that is missing part of the enamel. There is no focal gum swelling. There is no jaw swelling. Less Eyes PERRL and EOMs intact bilaterally Neck no lymphadenopathy, supple and no JVD Resp normal respiratory effort and clear to auscultation bilaterally Cardio regular rate, regular rhythm and no murmurs GI normal to inspection, nondistended, normoactive bowel sounds and non-tender Palpation: soft Back/Spine no CVA tenderness and normal ROM Back/Spine Narrative: Patient has tenderness to palpation over the rhomboids and the thoracic paraspinal musculature. No midline tenderness. Extremity normal to inspection General Extremety ED: Negative for edema General Extremity: Negative for edema Neuro oriented x3 and CN's II-XII intact bilaterally Sensorium / Orientation: alert Motor Exam: strength 5/5 throughout Psych mental status grossly normal Mood & Affect: Negative for depressed or tearful Skin no rashes or lesions noted and no wounds MDM MDM MDM Narrative Medical decision making narrative: Unfortunately there is not much I can do from a dental standpoint. She should try to contact a local dentist to see if they can help her as she her dentist is currently in [place]. Her upper back pain seems like musculoskeletal in nature. We can try some Flexeril and see if that helps her but would recommend continued anti-inflammatories heat and stretching. Discharge Plan Triage Chief Complaint: Back ED Provider: Alonso Allan Dx/Rx/DC Orders Clinical Impression: Acute thoracic myofascial strain, Odontalgia Instructions: ED Back Sprain/Strain, ED Dental Pain Prescriptions: New cyclobenzaprine [cyclobenzaprine] 10 MG tablet 10 mg PO TID PRN (Reason: Muscle Spasm) Qty: 15 RF: 0 No Action alprazolam 0.5 MG tablet 0.5 mg PO 4X/DAY PRN (Reason: Anxiety) RF: 0 zolpidem [Ambien] 10 MG tablet 10 mg PO QHS PRN PRN (Reason: Sleep) RF: 0 Primary Care Provider: Will Abdalla NP Referrals: Will Abdalla NP, BOTTOM PRECIPITATOR OPERATOR-C [Primary Care Provider] - As Needed Activity Restrictions/Additional Instructions: I would strongly suggest to try to get into dentistry sooner than July. Disposition Disposition: Home, Self Care
== END 2021-02-17 10:26 | disposition home or self-care (01) ==
LOC: ED 10:13
PROVIDERS: Emergency Provider Emergency Medicine; PCP Nurse Practitioner Family
DX: S29.012A Strain of muscle and tendon of back wall of thorax, initial encounter (principal); X50.0XXA Overexertion from strenuous movement or load, initial encounter; Y93.89 Activity, other specified; Y92.9 Unspecified place or not applicable; Y99.9 Unspecified external cause status; K08.89 Other specified disorders of teeth and supporting structures; F17.210 Nicotine dependence, cigarettes, uncomplicated
CPT/HCPCS: 99282

== ENCOUNTER 2021-06-21 09:45 | Emergency (ER) | payer MEDICAID, SELFPAY ==
[2021-06-21 09:47] VITALS: BP 137/89; PULSE 80; RESP 17; TEMP 36; O2SAT 98; BMI 25.0
--- NOTE | 2021-06-21 09:49 | EKG12_ITS ---
Test Reason : GEN ILL Blood Pressure : / mmHG Vent. Rate : 062 BPM Atrial Rate : 062 BPM P-R Int : 144 ms QRS Dur : 094 ms QT Int : 420 ms P-R-T Axes : 042 071 060 degrees QTc Int : 426 ms Normal sinus rhythm with sinus arrhythmia Normal ECG Confirmed by ERASMO GERMAIN, WESLEY ([id number]), editor sound KHANG LION ([id number]) on 06/23/2021 11:28:58 AM Referred By: WENDI Confirmed By:WESLEY ZIMMERMAN MD
[2021-06-21 10:11] LABS: Absolute Neutrophil Count 6.2 X10^3/uL (2.0-7.7); Basophil# 0.02 X10^3/uL; Basophil% 0.2 % (0-1); Eosinophil# 0.06 X10^3/uL; Eosinophils% 0.7 % (0-5); Hemoglobin 15.4 g/dL (12.0-15.0); Lymphocyte % 16.1 % (19-41); Mean Corpuscular Hgb 32.6 pg (27.0-32.0); Mean Corpuscular Volume 93.2 fL (81-99); Mean Platelet Vol. 10.3 fl (6.2-12.0); Monocyte# 0.51 X10^3/uL; Monocyte% 6.3 % (0-10); NRBC Flagged by Analyzer 0 % (0-5); Neutrophil # 6.17 X10^3/uL (2.7-7.7); Neutrophil % 76.6 % (47-70); Platelet Count 204 K/mm3 (150-450); RBC Distribution Width CV 12.4 % (11.6-14.6); Red Blood Count 4.72 M/mm3 (4.2-5.4); White Blood Count 8.1 K/mm3 (4.4-11.0)
[2021-06-21 10:37] LABS: Anion Gap 4 (5-15); BUN 15 mg/dL (7-18); BUN/Creat Ratio 22.1 RATIO (10-20); Calcium,Total 9.3 mg/dL (8.5-10.1); Chloride 106 mmol/L (98-107); Creatinine, Serum 0.68 mg/dL (0.55-1.02); EST Glomerular Filtration Rate 105 mL/min (>60); Est Glom Filt Rate - Afr Amer 128 mL/min (>60); Estimated Creatinine Clearance 114.43 ml/min; Glucose 102 mg/dL (74-106); Potassium 4.3 mmol/L (3.5-5.1); Sodium Level 138 mmol/L (136-145)
--- NOTE | 2021-06-21 12:05 | RAD_ITS ---
STUDY: X-RAY CHEST REASON FOR EXAM: Female, 35 years old. Generalized illness. The appendix. Nausea. TECHNIQUE: Single AP portable view of the chest. COMPARISON: Comparison is made with prior study dated 04/20/2019. FINDINGS: The lungs are clear and expanded. There is no demonstrated pleural abnormality. Normal size heart. Normal mediastinum and violet. Normal visualized pulmonary arteries. Normal visualized aortic arch and descending thoracic aorta. Normal visualized thoracic spine. Normal visualized ribs, clavicles, and shoulders. There is no demonstrated abnormality of the visualized soft tissue structures of the upper abdomen. RAD/Chest 1 View (Portable) IMPRESSION: Normal x-ray examination of the chest. Electronically Signed: Otf Jara MD at 12:26 EST , Service support ,
--- NOTE | 2021-06-21 13:32 | EX.ED.DYSGE1 ---
HPI History of Present Illness Chief Complaint: General Illness Informant: patient Onset/Context/Timing Onset: Days (7 days) Context: Gradual Onset Timing: Waxes and wanes Current Severity: Mild Maximum Severity: Moderate Narrative Narrative: Patient presents secondary to nausea, headache, head congestion. She has had very minimal cough with clear sputum. She had subjective fever at night, the last being 2 days ago. She had a Covid PCR test and influenza test done 2 days ago that was negative. [facility] Medical History Anxiety Depression Home Medications alprazolam 0.5 mg PO 4X/DAY PRN 12/11/13 [History Last Taken Unknown] zolpidem [Ambien] 10 mg PO QHS PRN PRN 12/11/13 [History Last Taken Unknown] cyclobenzaprine 10 mg PO TID PRN #15 tablet 02/17/21 [Rx Last Taken Unknown] doxycycline monohydrate 100 mg PO BID #20 cap 06/21/21 [Rx Last Taken Unknown] ondansetron 4 mg PO Q8H PRN #10 tab 06/21/21 [Rx Last Taken Unknown] Allergy/AdvReac Type Severity Reaction Status Date / Time acetaminophen Allergy Hives Verified 06/21/21 09:46 [From Darvocet-N] Penicillins Allergy Hives Verified 06/21/21 09:46 propoxyphene napsylate Allergy Hives Verified 06/21/21 09:46 [From Darvocet-N] amoxicillin AdvReac Hives Verified 06/21/21 09:46 Social History Smoking Status: Current every day smoker tobacco type: cigarettes substance use type: does not use ROS ROS ED Constitutional Constitutional ED: Reports fever(s) and subjective; Denies chills Eyes Eyes: Denies change in vision ENT ENT ED: Reports ear pain left and other Details: Sinus pressure ; Denies sore throat Cardiovascular Cardiovascular: Denies chest pain Respiratory/Chest Respiratory/Chest: Reports cough; Denies dyspnea Gastrointestinal Gastrointestinal: Reports nausea; Denies abdominal pain, diarrhea or vomiting Genitourinary Genitourinary ED: Denies dysuria Musculoskeletal Musculoskeletal: Denies back pain Integumentary Denies rash Neurologic Neurologic: Denies headache(s) or weakness Allergic/Immunologic Allergic/Immunologic ED: Denies urticaria EXAM Physical Exam Const Vital Signs: 06/21/21 09:47 Temperature 96.8 F L Temperature Source Temporal Pulse Rate 80 Respiratory Rate 17 Blood Pressure 137/89 H Blood Pressure Mean 105 Pulse Ox 98 Oxygen Delivery Method Room Air Positive well nourished and well developed General Appearance ED: well developed HEENT Reports TM's clear Tympanic Membrane ED: Yes TM's clear Eyes PERRL and EOMs intact bilaterally Neck no lymphadenopathy and supple Chest Wall inspection of chest normal and palpation of chest normal Resp normal respiratory effort and clear to auscultation bilaterally Cardio regular rate and regular rhythm GI normal to inspection, nondistended, normoactive bowel sounds Neuro oriented x3 Sensorium / Orientation: alert Psych mental status grossly normal Skin no rashes or lesions noted MDM MDM MDM Narrative Medical decision making narrative: Lab work and chest x-ray obtained per nursing protocol. Lab Data Attestation: I reviewed the patient's lab results. Labs: Laboratory Results - last 24 hr 06/21/21 06/21/21 10:05 10:05 WBC 8.1 RBC 4.72 Hgb 15.4 H Hct 44.0 MCV 93.2 MCH 32.6 H MCHC 35.0 RDW Std Deviation 43.0 RDW Coeff of Michelle 12.4 Plt Count 204 MPV 10.3 Immature Gran % (Auto) 0.100 Neut % (Auto) 76.6 H Lymph % (Auto) 16.1 L Day % (Auto) 6.3 Eos % (Auto) 0.7 Baso % (Auto) 0.2 Absolute Neuts (auto) 6.2 Absolute Lymphs (auto) 1.30 Nucleated RBC % 0 Sodium 138 Potassium 4.3 Chloride 106 Carbon Dioxide 28.0 Anion Gap 4 L BUN 15 Creatinine 0.68 Estim Creat Clear Calc 114.43 Est GFR (MDRD) Af Amer 128 Est GFR (MDRD) Non-Af 105 BUN/Creatinine Ratio 22.1 H Glucose 102 Calcium 9.3 Radiography Chest X-Ray - ED: 1 View, Read by ED Physician, Normal, Heart, Lungs and Mediastinum Diagnostic Testing: Clinical Impression(s) from Imaging Studies Chest X-Ray 06/21/21 12:05 IMPRESSION: Normal x-ray examination of the chest. Electronically Signed: Otf Jara MD at 12:26 EST , Service support , EKG Initial EKG: Attestation: I personally reviewed and interpreted this EKG as follows: Interpretation: Sinus Rhythm (Sinus at 62 with no acute ischemia.) Treatment and Re-Evaluation Comments:: On examination patient does have mild tenderness over the sinuses. She reportedly had a negative PCR Covid test 2 days ago, but states they did not put the swab very far up in her nose. In light of this she will have a repeat PCR test done today. She will be discharged and test results will be texted to her phone. I will write her an antibiotic for sinusitis. If her Covid test is negative she will fill this. If her Covid test is positive, I advised her all the sinus pressure is secondary to a virus and antibiotics would not work. She will be given a prescription for Zofran to help with nausea. Discharge Plan Triage Chief Complaint: General Illness ED Provider: Ibeth Orr Dx/Rx/DC Orders Clinical Impression: Sinusitis Instructions: ED Sinusitis (Antibiotic Treatment) Prescriptions: New doxycycline monohydrate 100 MG capsule 100 mg PO BID Qty: 20 RF: 0 ondansetron 4 mg tablet,disintegrating 4 mg PO Q8H PRN (Reason: nausea and vomiting) Qty: 10 RF: 0 No Action alprazolam 0.5 MG tablet 0.5 mg PO 4X/DAY PRN (Reason: Anxiety) RF: 0 zolpidem [Ambien] 10 MG tablet 10 mg PO QHS PRN PRN (Reason: Sleep) RF: 0 cyclobenzaprine [cyclobenzaprine] 10 MG tablet 10 mg PO TID PRN (Reason: Muscle Spasm) Qty: 15 RF: 0 Primary Care Provider: Will Abdalla NP Referrals: Will Abdalla NP, SITE ENGINEER-C [Primary Care Provider] - 1 Week if not improving Disposition Disposition: Home, Self Care
[2021-06-21 14:05] VITALS: PULSE 62; RESP 14; RESP 15; O2SAT 97; O2SAT 98
== END 2021-06-21 14:06 | disposition home or self-care (01) ==
PROVIDERS: Emergency Provider Emergency Medicine; PCP Nurse Practitioner Family
DX: J32.9 Chronic sinusitis, unspecified (principal); F32.A Depression, unspecified; F41.9 Anxiety disorder, unspecified; F17.210 Nicotine dependence, cigarettes, uncomplicated; Z79.899 Other long term (current) drug therapy
CPT/HCPCS: 71045; 80048; 85025; 87635; 93005; 99283; U0005; A4216; U0003

== ENCOUNTER 2022-04-08 15:21 | Emergency (ER) | payer MEDICAID, SELFPAY ==
[2022-04-08 15:22] VITALS: BP 157/76; PULSE 81; RESP 16; TEMP 37.1; O2SAT 98; BMI 25.4
--- NOTE | 2022-04-08 17:25 | ED.VIS.BACK ---
HPI History of Present Illness Chief Complaint: Back Informant: patient Narrative Narrative: 36-year-old female presenting to the emergency room with acute low back pain. Patient states that 3 days ago she awoke with left lower back pain. She notes some tightness in the bilateral hamstrings. No bowel or bladder dysfunction and no significant radicular symptoms. 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 She denies any known trauma or injury to her back. She has not had any significant injuries like this before. She notes painful range of motion. No IVD or fevers. No rashes. PFSH PFS Medical History Anxiety Depression Home Medications alprazolam 0.5 mg tablet 0.5 mg PO TID 12/11/13 [History Last Taken Unknown] zolpidem 10 mg tablet (Ambien) 10 mg PO QHS PRN PRN Sleep 12/11/13 [History Last Taken Unknown] doxycycline monohydrate 100 mg capsule 100 mg PO BID #20 caps 06/21/21 [Rx Last Taken Unknown] ondansetron 4 mg disintegrating tablet 4 mg PO Q8H PRN nausea and vomiting #10 tabs 06/21/21 [Rx Last Taken Unknown] cyclobenzaprine 10 mg tablet 10 mg PO TID PRN Muscle Spasm #15 TABLETS 04/08/22 [Rx Last Taken Unknown] hydrocodone-acetaminophen 5-325mg 5mg-325mg 1 tab PO Q6H PRN PRN Pain 3 days #12 TABLETS 04/08/22 [Rx Last Taken Unknown] ibuprofen 600 mg tablet 600 mg PO Q6H PRN PRN pain #20 TABLETS 04/08/22 [Rx Last Taken Unknown] Allergy/AdvReac Type Severity Reaction Status Date / Time acetaminophen Allergy Hives Verified 04/08/22 15:22 [From Darvocet-N] Penicillins Allergy Hives Verified 04/08/22 15:22 propoxyphene napsylate Allergy Hives Verified 04/08/22 15:22 [From Darvocet-N] amoxicillin AdvReac Hives Verified 04/08/22 15:22 Social History Smoking Status: Current every day smoker tobacco type: cigarettes substance use type: does not use ROS ROS ED Constitutional Constitutional ED: Denies chills, fever(s) or weight loss Eyes Eyes: Denies change in vision or diplopia ENT ENT ED: Denies ear pain, rhinorrhea or sore throat Cardiovascular Cardiovascular: Denies chest pain, orthopnea, palpitations or racing heartbeat Respiratory/Chest Respiratory/Chest: Denies cough, dyspnea or orthopnea Gastrointestinal Gastrointestinal: Denies abdominal pain, diarrhea, nausea or vomiting Genitourinary Genitourinary ED: Denies dysuria, hematuria or urinary frequency Musculoskeletal Musculoskeletal: Reports back pain; Denies arthralgias, myalgias or neck pain Integumentary Denies abscess or rash Neurologic Neurologic: Denies headache(s) or weakness Psychiatric Psychiatric: Denies anxiety, depression, suicidal ideation or suicidal thoughts Endocrine Endocrinology: Denies polydipsia, polyphagia or polyuria Allergic/Immunologic Allergic/Immunologic ED: Denies mouth swelling, tongue swelling or urticaria EXAM Physical Exam Const Vital Signs: 04/08/22 15:22 Temperature 98.7 F Temperature Source Temporal Pulse Rate 81 Respiratory Rate 16 Blood Pressure 157/76 H Blood Pressure Mean 103 Pulse Ox 98 Oxygen Delivery Method Room Air Positive well nourished and well developed General Appearance ED: well developed HEENT Reports normocephalic, head/scalp atraumatic and moist mucous membranes Eyes PERRL and EOMs intact bilaterally Neck no lymphadenopathy, supple and no JVD Resp normal respiratory effort and clear to auscultation bilaterally Cardio regular rate, regular rhythm and no murmurs GI normal to inspection, nondistended, normoactive bowel sounds and non-tender Palpation: soft Back/Spine no CVA tenderness Back/Spine Narrative: Patient has painful flexion of the low back. She has point tenderness over the left SI joint with apparent somatic dysfunction here. There are no rashes. There are no tissue texture changes to suggest underlying infection. Extremity normal to inspection General Extremety ED: Negative for edema General Extremity: Negative for edema Neuro oriented x3, CN's II-XII intact bilaterally and no sensory deficits noted Sensorium / Orientation: alert Motor Exam: strength 5/5 throughout Deep Tendon Reflexes: Rt Patellar (L4): 2+, Lt Patellar (L4): 2+, Rt Ankle (S1): 2+ and Lt Ankle (S1): 2+ Deep Tendon Reflexes Back: Rt Patellar (L4): 2+, Lt Patellar (L4): 2+, Rt Ankle (S1): 2+ and Lt Ankle (S1): 2+ Psych mental status grossly normal Mood & Affect: Negative for depressed or tearful Skin no rashes or lesions noted and no wounds MDM MDM MDM Narrative Medical decision making narrative: Clinically this appears to be a sacroiliac joint dysfunction. We talked about stretching about muscle imbalances. We will place her on anti-inflammatories and muscle relaxants would recommend heat. A few [place] for severe pain. Instructions to follow-up with primary care in 1 week or return if worsening Discharge Plan Triage Chief Complaint: Back ED Provider: Alonso Allan Dx/Rx/DC Orders Clinical Impression: Sacroiliac joint dysfunction of left side, Acute back pain Instructions: Anatomy of the Sacroiliac Joint Prescriptions: New hydrocodone-acetaminophen [hydrocodone-acetaminophen] 5-325 mg tablet 1 tab PO Q6H PRN PRN (Reason: Pain) 3 Days Qty: 12 0RF ibuprofen 600 mg tablet 600 mg PO Q6H PRN PRN (Reason: pain) Qty: 20 0RF cyclobenzaprine [cyclobenzaprine] 10 mg tablet 10 mg PO TID PRN (Reason: Muscle Spasm) Qty: 15 0RF No Action alprazolam 0.5 MG tablet 0.5 mg PO TID zolpidem [Ambien] 10 MG tablet 10 mg PO QHS PRN PRN (Reason: Sleep) doxycycline monohydrate 100 MG capsule 100 mg PO BID Qty: 20 0RF ondansetron 4 mg tablet,disintegrating 4 mg PO Q8H PRN (Reason: nausea and vomiting) Qty: 10 0RF Primary Care Provider: Will Abdalla NP Referrals: Will Abdalla NP, ENVIRONMENTAL TECHNICAL OFFICER-C [Primary Care Provider] - 1 Week if not improving Disposition Disposition: Home, Self Care
[2022-04-08 17:41] VITALS: BP 150/77; PULSE 88; O2SAT 99
== END 2022-04-08 17:41 | disposition home or self-care (01) ==
PROVIDERS: Emergency Provider Emergency Medicine; PCP Nurse Practitioner Family; Visit Provider Emergency Medicine
DX: M53.3 Sacrococcygeal disorders, not elsewhere classified (principal); F17.210 Nicotine dependence, cigarettes, uncomplicated
CPT/HCPCS: 99282

== ENCOUNTER 2022-09-20 20:38 | Emergency (ER) | payer MEDICAID, SELFPAY ==
[2022-09-20 20:39] VITALS: BP 125/69; PULSE 84; RESP 15; TEMP 37.2; O2SAT 97; BMI 28.6
--- NOTE | 2022-09-20 21:21 | EX.ED.DYSGE1 ---
HPI History of Present Illness Chief Complaint: General Illness Informant: patient Onset/Context/Timing Onset: Days (5) Context: Gradual Onset Timing: Continuous Quality: Aching Location: Generalized Worsened by: Nothing Relieved by: Nothing Narrative Narrative: Patient presents with fever, myalgias, and ear pain that has been getting worse over the last 5 days. Patient states her fever was 99.9 at home. Patient states she has had a recent cough. Patient states she has had decreased hearing out of her left ear. Patient also admits to a sore throat and rhinorrhea. Patient states she knows she has a cavity in her right upper molar but has not had a chance to get that fixed. Patient admits to general myalgias have a headache. Patient denies any sputum production. Patient denies any chest pain or shortness of breath. Patient denies any sick contacts. PFSH PFSH Medical History Anxiety Depression Home Medications alprazolam 0.5 mg tablet 0.5 mg PO TID 12/11/13 [History Last Taken Unknown] zolpidem 10 mg tablet (Ambien) 10 mg PO QHS PRN PRN Sleep 12/11/13 [History Last Taken Unknown] clindamycin HCl 300 mg capsule (Cleocin HCl) 300 mg PO Q6H #40 CAPSULES 09/20/22 [Rx Last Taken Unknown] Allergy/AdvReac Type Severity Reaction Status Date / Time acetaminophen Allergy Hives Verified 09/20/22 20:44 [From Darvocet-N] Penicillins Allergy Hives Verified 09/20/22 20:44 propoxyphene napsylate Allergy Hives Verified 09/20/22 20:44 [From Darvocet-N] amoxicillin AdvReac Hives Verified 09/20/22 20:44 Surgical History no surgical history no surgical history Social History Smoking Status: Current every day smoker tobacco type: cigarettes substance use type: does not use ROS ROS ED Constitutional Constitutional ED: Reports fever(s); Denies chills Eyes Eyes: Denies blurry vision or change in vision ENT ENT ED: Reports ear pain bilateral, rhinorrhea and sore throat Cardiovascular Cardiovascular: Denies chest pain or palpitations Respiratory/Chest Respiratory/Chest: Reports cough; Denies dyspnea Gastrointestinal Gastrointestinal: Denies nausea or vomiting Genitourinary Genitourinary ED: Denies dysuria or hematuria Musculoskeletal Musculoskeletal: Reports myalgias; Denies back pain or neck pain Integumentary Denies abscess or rash Neurologic Neurologic: Reports headache(s); Denies weakness Allergic/Immunologic Allergic/Immunologic ED: Denies mouth swelling or urticaria EXAM Physical Exam Const Vital Signs: 09/20/22 20:39 09/20/22 20:53 Temperature 99 F Temperature Source Temporal Pulse Rate 84 Respiratory Rate 15 Respiratory Effort Normal Non-Labored Respiratory Pattern Normal Blood Pressure 125/69 H Blood Pressure Mean 87 Pulse Ox 97 Oxygen Delivery Method Room Air Positive well nourished and well developed General Appearance ED: well developed and NAD HEENT Reports moist mucous membranes HEENT Narrative: The left tympanic membrane was erythematous. The right tympanic membrane had a moderate effusion. Oral mucosa is pink and moist. There is a dental carry noted over the right upper first molar. There is mild gingival edema. There is no fluctuance. There is no discharge or drainage. Eyes PERRL and EOMs intact bilaterally Neck supple and no JVD Resp normal respiratory effort and clear to auscultation bilaterally Cardio regular rate, regular rhythm and no murmurs GI normal to inspection, nondistended, normoactive bowel sounds and non-tender Palpation: soft Extremity normal to inspection General Extremety ED: Negative for edema or tenderness General Extremity: Negative for edema Neuro oriented x3, CN's II-XII intact bilaterally and no sensory deficits noted Sensorium / Orientation: alert Motor Exam: strength 5/5 throughout Psych mental status grossly normal Skin no rashes or lesions noted MDM MDM MDM Narrative Medical decision making narrative: Differential diagnosis includes acute otitis media, serous otitis media, COVID infection, and influenza infection. COVID-19 rapid antigen will be obtained to assess for COVID infection. Influenza a and influenza B antigens will be obtained to assess for influenza infection. Lab Data Attestation: I reviewed the patient's lab results. Lab results narrative: COVID-19 rapid antigen was reviewed and was negative. Influenza A and influenza B rapid antigens were reviewed and were negative. Treatment and Re-Evaluation :: Patient was given a dose of clindamycin here to cover for dental infection and otitis media since she is allergic to penicillins. Patient was given a prescription for clindamycin. Patient was instructed to follow-up with her primary care physician and her dentist in 5 to 7 days for further evaluation. Patient understood and was agreeable with the plan. All questions were answered. Discharge Plan Triage Chief Complaint: General Illness ED Provider: Parish Martinez Dx/Rx/DC Orders Clinical Impression: Infected dental caries, Acute left otitis media Instructions: ED Dental Cavity, ED Otitis Media Antibiotic ... Prescriptions: New clindamycin HCl [Cleocin HCl] 300 mg capsule 300 mg PO Q6H Qty: 40 0RF No Action alprazolam 0.5 MG tablet 0.5 mg PO TID zolpidem [Ambien] 10 MG tablet 10 mg PO QHS PRN PRN (Reason: Sleep) Primary Care Provider: Will Abdalla NP Referrals: Will Abdalla NP, PC INSTALLATION ENGINEER-C [Primary Care Provider] - 5-7 Days Disposition Disposition: Home, Self Care
[2022-09-20] MEDS: Clindamycin HCl 150 MG Capsule 300 MG PO (21:38)
[2022-09-20 22:24] VITALS: PULSE 88; RESP 16; O2SAT 99
== END 2022-09-20 22:24 | disposition home or self-care (01) ==
PROVIDERS: Emergency Provider Emergency Medicine; PCP Nurse Practitioner Family; Visit Provider Emergency Medicine
DX: K02.9 Dental caries, unspecified (principal); H66.92 Otitis media, unspecified, left ear; F17.210 Nicotine dependence, cigarettes, uncomplicated
CPT/HCPCS: 87428; 99283

== ENCOUNTER 2022-11-03 17:02 | Emergency (ER) | payer MEDICAID, SELFPAY ==
[2022-11-03 17:03] VITALS: BP 125/67; PULSE 106; RESP 18; TEMP 36.1; O2SAT 98; BMI 26.6
--- NOTE | 2022-11-03 17:48 | ED.RN ---
PER DR. BARRETO VERBAL ORDER, OKAY TO DISCONTINUE SEPSIS SCREENS.
--- NOTE | 2022-11-03 18:03 | ED.VIS.DENTA ---
HPI History of Present Illness Chief Complaint: Dental Informant: patient Onset/Context/Timing Onset: Month(s) Context: Gradual Onset Timing: Continuous Quality: Sharp, aching Location: Right upper first premolar Worsened by: Everything Relieved by: - (Nothing) Associated Symptoms Assocated Symptom - Dental: cold sensitivity and hot sensitivity; Negative for fever, jaw swelling or face swelling Narrative Narrative: Patient presents with right upper dental pain that has been getting worse over the past month. Patient states she finished a course of clindamycin today. Patient states that this has not helped. Patient states she has been taking Tylenol, ibuprofen, and Orajel with no relief. Patient does admit to hot and cold sensitivity. Patient has an appoint with her dentist on 11/08/2022. Patient denies any fevers or chills. Patient does admit to a mild sore throat. PFSH PFS Medical History Anxiety Depression Home Medications alprazolam 0.5 mg tablet 0.5 mg PO TID 12/11/13 [History Last Taken Unknown] zolpidem 10 mg tablet (Ambien) 10 mg PO QHS PRN PRN Sleep 12/11/13 [History Last Taken Unknown] doxycycline monohydrate 100 mg capsule 100 mg PO BID #20 CAPSULES 11/03/22 [Rx Last Taken Unknown] Allergy/AdvReac Type Severity Reaction Status Date / Time acetaminophen Allergy Hives Verified 11/03/22 17:43 [From Darvocet-N] Penicillins Allergy Hives Verified 11/03/22 17:43 propoxyphene napsylate Allergy Hives Verified 11/03/22 17:43 [From Darvocet-N] amoxicillin AdvReac Hives Verified 11/03/22 17:43 Social History Smoking Status: Current every day smoker tobacco type: cigarettes substance use type: does not use ROS ROS ED Constitutional Constitutional ED: Denies chills or fever(s) Eyes Eyes: Denies blurry vision or change in vision ENT ENT ED: Reports sore throat; Denies rhinorrhea Cardiovascular Cardiovascular: Denies chest pain or palpitations Respiratory/Chest Respiratory/Chest: Denies cough or dyspnea Gastrointestinal Gastrointestinal: Denies nausea or vomiting Genitourinary Genitourinary ED: Denies dysuria or hematuria Musculoskeletal Musculoskeletal: Denies back pain or neck pain Integumentary Denies abscess or rash Neurologic Neurologic: Reports headache(s); Denies weakness Allergic/Immunologic Allergic/Immunologic ED: Denies mouth swelling or urticaria EXAM Physical Exam Const Vital Signs: 11/03/22 17:03 Temperature 97 F L Temperature Source Temporal Pulse Rate 106 H Respiratory Rate 18 Blood Pressure 125/67 H Blood Pressure Mean 86 Pulse Ox 98 Oxygen Delivery Method Room Air Positive well nourished and well developed General Appearance ED: well developed and NAD HEENT HEENT Narrative: There is a dental carry noted on the occlusal surface of the right upper first premolar. There is tenderness percussion over this tooth. There is minimal tenderness over the second premolar and canine. There is mild gingival edema and erythema. There is no fluctuance. There is no discharge or drainage. Neck is supple. Trachea is midline. There is no sublingual edema. There is no evidence of any abscess. There is no evidence of Norberto's angina. Mouth ED: Yes oral and palatal mucosa normal Mouth: oral and palatal mucosa normal Teeth and Gingiva: caries and gingiva abnormal Positive for gingival edema Throat: posterior oropharynx normal Eyes PERRL and EOMs intact bilaterally Neck supple and no JVD General: Negative for anterior neck swelling, tenderness or submandibular swelling Neuro oriented x3, CN's II-XII intact bilaterally, moves all extremities, no focal motor deficits and no sensory deficits noted Sensorium / Orientation: alert Motor Exam: strength 5/5 throughout Psych mental status grossly normal MDM MDM MDM Narrative Medical decision making narrative: Since the patient dispensed a course of clindamycin, patient will be given a prescription for doxycycline. Patient was given her first dose here. Patient was instructed continue Orajel, Tylenol, and ibuprofen for pain. Patient was instructed to follow-up with her dentist as scheduled. Patient understood and was agreeable with the plan. All questions were answered. Discharge Plan Triage Chief Complaint: Dental ED Provider: Parish Martinez Dx/Rx/DC Orders Clinical Impression: Infected dental caries, Odontalgia Instructions: ED Dental Pain, ED Dental Cavity Prescriptions: New doxycycline monohydrate 100 mg capsule 100 mg PO BID Qty: 20 0RF No Action alprazolam 0.5 MG tablet 0.5 mg PO TID zolpidem [Ambien] 10 MG tablet 10 mg PO QHS PRN PRN (Reason: Sleep) Primary Care Provider: Will Abdalla NP Referrals: Will Abdalla NP, TRAFFIC [employer]ER-[facility] [Primary Care Provider] - Dentist,Your [STAFF PHYSICIAN] - Keep Paty appointment Disposition Disposition: Home, Self Care
[2022-11-03] MEDS: Naproxen 250 MG Tablet 500 MG PO (18:20)
[2022-11-03] MEDS: Doxycycline 100 MG CAPSULE PO (18:21)
[2022-11-03 18:25] VITALS: RESP 16
== END 2022-11-03 18:25 | disposition home or self-care (01) ==
PROVIDERS: Emergency Provider Emergency Medicine; PCP Nurse Practitioner Family; Visit Provider Emergency Medicine
DX: K02.9 Dental caries, unspecified (principal); F17.210 Nicotine dependence, cigarettes, uncomplicated
CPT/HCPCS: 99283